=== PATIENT | male | born 1985 | race Caucasian/White ===

== ENCOUNTER → 2016-09-30 | Outpatient (CLI) | payer OTHER ==
--- NOTE | 2016-10-01 07:08 | XR ---
EXAMINATION TYPE: XR chest 2V DATE OF EXAM: 09/30/2016 COMPARISON: Chest x-ray April 06, 2011 HISTORY: Cough for one month TECHNIQUE: Frontal and lateral views of the chest are obtained. FINDINGS: There is no focal air space opacity, pleural effusion, or pneumothorax seen. The cardiac silhouette size is within normal limits. The osseous structures are intact. Cholecystectomy clips a re redemonstrated on lateral view. IMPRESSION: No suspicious focal infiltrate.
== END | disposition home or self-care (01) ==
LOC: RADXRMAIN 18:30
PROVIDERS: ATTEND Internal Medicine
DX: R05 Cough (principal); Z79.899 Other long term (current) drug therapy
CPT/HCPCS: 71020

== ENCOUNTER → 2019-04-08 | Outpatient (CLI) | payer BC ==
--- NOTE | 2019-04-08 13:32 | XR ---
EXAMINATION TYPE: XR chest 2V DATE OF EXAM: 04/08/2019 COMPARISON: 09/30/2016 HISTORY: Cough TECHNIQUE: Frontal and lateral views of the chest are obtained. FINDINGS: There is no focal air space opacity, pleural effusion, or pneumothorax seen. The cardiac silhouette size is within normal limits. The osseous structures are intact. Cholecystectomy clips a re present. IMPRESSION: No acute cardiopulmonary process.
== END | disposition home or self-care (01) ==
LOC: RADXRMAIN 11:35
PROVIDERS: ATTEND Internal Medicine
DX: R05 Cough (principal)
CPT/HCPCS: 71046

== ENCOUNTER → 2021-06-25 | Outpatient (CLI) | payer BC ==
--- NOTE | 2021-06-25 17:58 | US ---
EXAMINATION TYPE: US groin LT DATE OF EXAM: 06/25/2021 COMPARISON: NONE CLINICAL HISTORY: 35-year-old male R10.32 L groin pain. Technique: Targeted ultrasound examination along the site of patient's pain along the left inguinal r egion. Valsalva maneuver was utilized. FINDINGS: Crusher Feeder notes: Patient has generalized groin pain extending from his left testicle to his medial left hip. No abnormality seen in scanned area. No hernia or fluid collection noted at this time. IMPRESSION: No discrete sonographic abnormality along the left inguinal region along the site of patient's pain.
== END | disposition home or self-care (01) ==
LOC: RADUSWWP 13:31
PROVIDERS: ATTEND Internal Medicine
DX: R10.32 Left lower quadrant pain (principal)

== ENCOUNTER 2021-07-07 07:15 | Emergency (ER) | payer BC, OTHER ==
[2021-07-07 07:22] VITALS: RESP 18
--- NOTE | 2021-07-07 07:37 | ED ---
General Adult HPI - General Stated complaint: [facility] - Needle Stick Time Seen by Provider: 07/07/21 07:19 Source: patient, RN notes reviewed Mode of arrival: ambulatory Limitations: no limitations - History of Present Illness Initial comments: 35-year-old male presents emergency Department chief complaint of needlestick. Patient states that he poked himself with a yuval it. There is no history of communicable diseases of the patient. States it is small amount blood. He did immediately wash it. Patient states up-to-date on his tetanus. Patient offers no complaints. - Related Data Home Medications Medication Instructions Recorded Confirmed Valerian Root 525 mg PO HS PRN 09/15/14 09/15/14 Allergies Allergy/AdvReac Type Severity Reaction Status Date / Time No Known Allergies Allergy Verified 07/07/21 07:21 Review of Systems ROS Statement: Those systems with pertinent positive or pertinent negative responses have been documented in the HPI. ROS Other: All systems not noted in ROS Statement are negative. Past Medical History Past Medical History: Pneumonia Additional Past Medical History / Comment(s): kidney stones, cat scratch disease, transient proteinuria. History of Any Multi-Drug Resistant Organisms: None Reported Past Surgical History: Cholecystectomy Past Psychological History: No Psychological Hx Reported Smoking Status: Never smoker Past Alcohol Use History: Occasional Past Drug Use History: None Reported - Past Family History Mother Family Medical History: No Reported History (Mother at age of 45 after she was drowned and she suffered from schizophrenia) Additional Family Medical History / Comment(s): schizophrenia Father Family Medical History: No Reported History (Father is 57-year-old he has no major medical problems) Sister(s) Family Medical History: No Reported History (2 sisters no major medical problems) General Exam General appearance: alert, in no apparent distress Head exam: Present: atraumatic, normocephalic, normal inspection Respiratory exam: Present: normal lung sounds bilaterally. Absent: respiratory distress, wheezes, rales, rhonchi, stridor Cardiovascular Exam: Present: regular rate, normal rhythm, normal heart sounds. Absent: systolic murmur, diastolic murmur, rubs, gallop, clicks Extremities exam: Present: other (No notable puncture wound to the left index finger) Course Vital Signs 07/07/21 07:19 Temperature 97.6 F Pulse Rate 73 Respiratory 18 Rate Blood Pressure 146/82 O2 Sat by Pulse 96 Oximetry Medical Decision Making - Medical Decision Making Patient had exposure from [place] there is no history kidney will diseases. Patient was offered prophylaxis patient declines will have rapid testing performed, will have recheck with [facility] Disposition Clinical Impression: Needlestick injury accident Disposition: HOME SELF-CARE Condition: Stable Instructions (If sedation given, give patient instructions): Needle Stick Injuries (ED) Additional Instructions: Please return to the Emergency Department if symptoms worsen or any other concerns. Is patient prescribed a controlled substance at d/c from ED?: No Referrals: Guerline Landry MD [Primary Care Provider] - 1-2 days Time of Disposition: 07:36
[2021-07-07 08:31] VITALS: BP 117/76; PULSE 68; TEMP 98.2
[2021-07-07 11:15] LABS: Hepatitis B Surface AB- Quant 3.5 mIU/mL; Hepatitis B Surface Antibody Nonreactive (Nonreactive)
[2021-07-07 13:03] LABS: Hepatitis C IgG Antibody Nonreactive (Nonreactive)
[2021-07-08 16:40] LABS: HIV 2 AB Non-Reactive (Non-Reactive); HIV AB P24 Non-Reactive (Non-Reactive); HIV P24 AG Non-Reactive (Non-Reactive)
== END 2021-07-07 08:33 | disposition home or self-care (01) ==
LOC: EC 07:15
DX: Z77.21 Contact with and (suspected) exposure to potentially hazardous body fluids (principal); W46.1XXA Contact with contaminated hypodermic needle, initial encounter
CPT/HCPCS: 36415; 86706; 86803; 87390

== ENCOUNTER → 2022-03-03 | Outpatient (CLI) | payer OTHER ==
--- NOTE | 2022-03-03 10:57 | CA ---
Stress Echo Report aSm Charles Age: 36 Gender: M : 1985 Exam Date: 03/03/2022 09:54 Exam Location: [facility] Ht (in): 69 Wt (lb): 250 Ordering Physician: Destinee Tracy MD Referring Physician: DESTINEE TRACY,, Import/Export Administrator: Tasneem Be RDCS Technologist Procedure CPT: Indication: R07.9 CHEST PAIN ICD-9 Codes: Rhythm: Patient History: Chest Pain Cardiac Medications: Medications in past 24 hours: Contrast: Stress Results Protocol: Laci Total dose(mL): Exercise Duration (min:sec): 9:[address] Depression (mm): Angina Score: Sanderson Score: METS: 10.3 Resting HR: 87 Resting BP: 84 / 45 Peak HR: 180 Peak BP: 165 / 70 Max Predicted HR: 183 98 % Max Predicted HR Target HR: 156 Double Product: [id number] Stress Summary: BP Response: Reason for Termination: Reached target heart rate or work-load Cardiac Symptoms: Chest pain ECG Analysis Resting ECG: Normal sinus rhythm normal axis normal intervals Stress ECG: Negative stress test by EKG criteria Arrhythmia: No significant cardiac arrhythmia Echo Analysis Resting Echo: Normal left ventricular size wall motion systolic function Peak Echo Analysis: Normal hyperdynamic response of all segments of myocardium MEASUREMENTS (Male/Female) Normal Values CONCLUSIONS Good exercise tolerance Negative stress test by EKG criteria Negative stress echo Dr. Michi Stanley MD (Electronically Signed) Final Date: 03 March 2022 10:56
== END | disposition home or self-care (01) ==
LOC: RADNMMAIN 09:45
PROVIDERS: ATTEND Internal Medicine
DX: R07.9 Chest pain, unspecified (principal)
CPT/HCPCS: 93351

== ENCOUNTER 2023-09-20 00:19 | Emergency (ER) | payer BC, OTHER ==
--- NOTE | 2023-09-20 01:23 | ED ---
General Adult HPI - General Chief complaint: Chest Pain Stated complaint: left arm pain dizzy thirsty Time Seen by Provider: 09/20/23 01:16 Source: patient - History of Present Illness Initial comments: Dictation was produced using [employer] dictation software. please excuse any grammatical, word or spelling errors. Chief Complaint: 37-year-old male presents emergency department chest pain History of Present Illness: Patient is a 29-year-old male presents emergency department chest pain. Patient states that his pain has not been on and off for the last several days. Patient has no comorbidities. States that he decided come to the emergency department because he thought it was cardiac given that today he had some episodes of diaphoresis. No family history of cardiac disease. Patient states that his pain is not reproducible. Denies any shortness of breath. Denies any pleurisy. The ROS documented in this emergency department record has been reviewed and confirmed by me. Those systems with pertinent positive or negative responses have been documented in the HPI. All other systems are other negative and/or noncontributory. - Related Data Home Medications Medication Instructions Recorded Confirmed Valerian Root 525 mg PO HS PRN 09/15/14 09/15/14 Allergies Allergy/AdvReac Type Severity Reaction Status Date / Time No Known Allergies Allergy Verified 09/20/23 01:13 Review of Systems ROS Statement: Those systems with pertinent positive or pertinent negative responses have been documented in the HPI. ROS Other: All systems not noted in ROS Statement are negative. Past Medical History Past Medical History: Pneumonia Additional Past Medical History / Comment(s): kidney stones, cat scratch disease, transient proteinuria. History of Any Multi-Drug Resistant Organisms: None Reported Past Surgical History: Cholecystectomy Past Psychological History: No Psychological Hx Reported Smoking Status: Never smoker Past Alcohol Use History: Occasional Past Drug Use History: None Reported - Past Family History Mother Family Medical History: No Reported History (Mother at age of 45 after she was drowned and she suffered from schizophrenia) Additional Family Medical History / Comment(s): schizophrenia Father Family Medical History: No Reported History (Father is 57-year-old he has no major medical problems) Sister(s) Family Medical History: No Reported History (2 sisters no major medical problems) General Exam - General Exam Comments Initial Comments: PHYSICAL EXAM: General Impression: Alert and oriented x3, not in acute distress HEENT: Normocephalic atraumatic, extra-ocular movements intact, pupils equal and reactive to light bilaterally, mucous membranes moist. Cardiovascular: Heart regular rate and rhythm Chest: Able to complete full sentences, no retractions, no tachypnea Abdomen: abdomen soft, non-tender, non-distended, no organomegaly Musculoskeletal: Pulses present and equal in all extremities, no peripheral edema Motor: no focal deficits noted Neurological: CN II-XII grossly intact, no focal motor or sensory deficits noted Skin: Intact with no visualized rashes Psych: Normal affect and mood Course Vital Signs 09/20/23 09/20/23 09/20/23 01:08 01:33 02:13 Temperature 98.1 F Pulse Rate 95 82 Pulse Rate [ 89 Workforce Staffing Advisor ] Respiratory 14 20 Rate Blood Pressure 129/78 115/73 O2 Sat by Pulse 97 97 Oximetry 09/20/23 06:21 Temperature Pulse Rate 60 Pulse Rate [ Workforce Staffing Advisor ] Respiratory 18 Rate Blood Pressure 115/74 O2 Sat by Pulse 96 Oximetry EKG Findings - EKG Comments: EKG Findings:: My EKG interpretation: Ventricular rate 83, sinus rhythm,. 167, QRS 89, QTc 4 4. No LA prolongation, no QTC prolongation, no ST or T-wave changes noted. Overall, this EKG is unremarkable Medical Decision Making - Medical Decision Making Was pt. sent in by a medical professional or institution ([facility]ios, CRIMINAL INVESTIGATIVE AGENT, urgent care, hospital, or skilled nursing...) When possible be specific @ -No Did you speak to anyone other than the patient for history (EMS, parent, family, police, friend...)? What history was obtained from this source @ -No Did you review nursing and triage notes (agree or disagree)? Why? @ -I reviewed and agree with nursing and triage notes Were old charts reviewed (outside hosp., previous admission, EMS record, old EKG, old radiological studies, urgent care reports/EKG's, skilled nursing records)? Report findings @ -No old charts were reviewed Differential Diagnosis (chest pain, altered mental status, abdominal pain women, abdominal pain men, vaginal bleeding, musculoskeletal, weakness, fever, dyspnea, syncope, headache, dizziness, GI bleed, back pain, seizure, CVA, palpatations, mental health)? @ -Differential Chest Pain: Stable Angina, Unstable Angina, STEMI, NSTEMI Aortic Dissection, Pneumothorax, Musculoskeletal, Esophageal Spasm GERD, Cholecystitis, Pancreatitis, Zoster, this is not meant to be an all-inclusive list. EKG interpreted by me (3pts min.). @ -See above X-rays interpreted by me (1pt min.). @ -Two-view chest x-ray is unremarkable CT interpreted by me (1pt min.). @ -None done U/S interpreted by me (1pt. min.). @ -None done What testing was considered but not performed or refused? (CT, X-rays, U/S, labs)? Why? @ -None What meds were considered but not given or refused? Why? @ -None Did you discuss the management of the patient with other professionals (professionals i.e. , PA, CRIMINAL INVESTIGATIVE AGENT, lab, RT, psych nurse, hospital social worker, oxygen plant operator, teacher, disability insurance hearing officer, case finishing machine adjuster)? Give summary @ -No Was smoking cessation discussed for >3mins.? @ -No Was critical care preformed (if so, how long)? @ -No Were there social determinants of health that impacted care today? How? (Homelessness, low income, unemployed, alcoholism, drug addiction, transportation, low edu. Level, literacy, decrease access to med. care, snf, rehab)? @ -No Was there de-escalation of care discussed even if they declined (Discuss DNR or withdrawal of care, Hospice)? DNR status @ -No What co-morbidities impacted this encounter? (DM, HTN, Smoking, COPD, CAD, Cancer, CVA, ARF, Chemo, Hep., AIDS, mental health diagnosis, sleep apnea, morbid obesity)? @ -None Was patient admitted / discharged? Hospital course, mention meds given and route, prescriptions, significant lab abnormalities, going to OR and other pertinent info. @ -37-year-old male presents emergency department with atypical chest pain typical features. Vital signs upon arrival are within acceptable limits. Patient is low heart score risk. Laboratory evaluation obtained. CBC, coag panel, metabolic panel is unremarkable. Troponin is negative. Disposition options were discussed. Patient is agreeable for second troponin to determine final disposition. Patient given aspirin. Second troponin is negative. Patient reevaluated again at bedside 6:47 AM found to be stable medical addition. Patient pain-free. Patient discharged Undiagnosed new problem with uncertain prognosis? @ -No Drug Therapy requiring intensive monitoring for toxicity (Heparin, Nitro, Insulin, Cardizem)? @ -No Were any procedures done? @ -No Diagnosis/symptom? Acute, or Chronic, or Acute on Chronic? Uncomplicated (without systemic symptoms) or Complicated (systemic symptoms)? @ -Chest pain Side effects of treatment? @ -No Exacerbation, Progression, or Severe Exacerbation? @ -No Poses a threat to life or bodily function? How? (Chest pain, [place], GA, pneumonia, PE, COPD, DKA, ARF, appy, cholecystitis, CVA, Diverticulitis, Homicidal, Suicidal, threat to staff... and all critical care pts) @ -No - Lab Data Result diagrams: 09/20/23 01:09/20/23 01: Lab Results 09/20/23 09/20/23 09/20/23 Range/Units 01:28 01: 01:28 WBC 8.0 (3.8-10.6) k/uL RBC 5.28 (4.30-5.90) m/uL Hgb 15.5 (13.0-17.5) gm/dL Hct 46.3 (39.0-53.0) % MCV 87.8 (80.0-100.0) fL MCH 29.4 (25.0-35.0) pg MCHC 33.4 (31.0-37.0) g/dL RDW 13.7 (11.5-15.5) % Plt Count 275 (150-450) k/uL MPV 7.9 Neutrophils % 58 % Lymphocytes % 26 % Monocytes % 8 % Eosinophils % 4 % Basophils % 1 % Neutrophils # 4.6 (1.3-7.7) k/uL Lymphocytes # 2.1 (1.0-4.8) k/uL Monocytes # 0.7 (0-1.0) k/uL Eosinophils # 0.4 (0-0.7) k/uL Basophils # 0.1 (0-0.2) k/uL PT 10.3 (10.0-12.5) sec INR 0.9 (<1.2) APTT 27.3 (22.0-30.0) sec Sodium 142 (137-145) mmol/L Potassium 3.7 (3.5-5.1) mmol/L Chloride 109 H (98-107) mmol/L Carbon Dioxide 26 (22-30) mmol/L Anion Gap 7 mmol/L BUN 18 (9-20) mg/dL Creatinine 0.88 (0.66-1.25) mg/dL Est GFR (CKD-EPI)AfAm >90 (>60 ml/min/1.73 sqM) Est GFR (CKD-EPI)NonAf >90 (>60 ml/min/1.73 sqM) Glucose 117 H (74-99) mg/dL Calcium 8.7 (8.4-10.2) mg/dL Magnesium 2.0 (1.6-2.3) mg/dL Total Bilirubin 1.5 H (0.2-1.3) mg/dL AST 26 (17-59) U/L ALT 26 (4-49) U/L Alkaline Phosphatase 73 (38-126) U/L Troponin I (0.000-0.034) ng/mL Total Protein 6.8 (6.3-8.2) g/dL Albumin 3.9 (3.5-5.0) g/dL 09/20/23 09/20/23 Range/Units 01:28 05:06 WBC (3.8-10.6) k/uL RBC (4.30-5.90) m/uL Hgb (13.0-17.5) gm/dL Hct (39.0-53.0) % MCV (80.0-100.0) fL MCH (25.0-35.0) pg MCHC (31.0-37.0) g/dL RDW (11.5-15.5) % Plt Count (150-450) k/uL MPV Neutrophils % % Lymphocytes % % Monocytes % % Eosinophils % % Basophils % % Neutrophils # (1.3-7.7) k/uL Lymphocytes # (1.0-4.8) k/uL Monocytes # (0-1.0) k/uL Eosinophils # (0-0.7) k/uL Basophils # (0-0.2) k/uL PT (10.0-12.5) sec INR (<1.2) APTT (22.0-30.0) sec Sodium (137-145) mmol/L Potassium (3.5-5.1) mmol/L Chloride (98-107) mmol/L Carbon Dioxide (22-30) mmol/L Anion Gap mmol/L BUN (9-20) mg/dL Creatinine (0.66-1.25) mg/dL Est GFR (CKD-EPI)AfAm (>60 ml/min/1.73 sqM) Est GFR (CKD-EPI)NonAf (>60 ml/min/1.73 sqM) Glucose (74-99) mg/dL Calcium (8.4-10.2) mg/dL Magnesium (1.6-2.3) mg/dL Total Bilirubin (0.2-1.3) mg/dL AST (17-59) U/L ALT (4-49) U/L Alkaline Phosphatase (38-126) U/L Troponin I <0.012 <0.012 (0.000-0.034) ng/mL Total Protein (6.3-8.2) g/dL Albumin (3.5-5.0) g/dL Disposition Clinical Impression: Chest pain Disposition: HOME SELF-CARE Condition: Good Instructions (If sedation given, give patient instructions): Chest Pain (ED) Is patient prescribed a controlled substance at d/c from ED?: No Referrals: Guerline Landry MD [Primary Care Provider] - 1-2 days Time of Disposition: 06:47
[2023-09-20 01:43] LABS: Basophils # (A) 0.1 k/uL (0-0.2); Basophils % (A) 1 %; Eosinophils # (A) 0.4 k/uL (0-0.7); Eosinophils % (A) 4 %; HCT 46.3 % (39.0-53.0); HGB 15.5 gm/dL (13.0-17.5); Lymphocytes # (A) 2.1 k/uL (1.0-4.8); Lymphocytes % (A) 26 %; MCH 29.4 pg (25.0-35.0); MCHC 33.4 g/dL (31.0-37.0); MCV 87.8 fL (80.0-100.0); Mean Platelet Volume 7.9; Monocytes # (A) 0.7 k/uL (0-1.0); Monocytes % (A) 8 %; Neutrophils # (A) 4.6 k/uL (1.3-7.7); Neutrophils % (A) 58 %; Platelet Count 275 k/uL (150-450); RBC 5.28 m/uL (4.30-5.90); RDW 13.7 % (11.5-15.5)
[2023-09-20 01:46] LABS: ALT 26 U/L (4-49); AST 26 U/L (17-59); African American GFR (CKD) >90 (>60 ml/min/1.73 sqM); Albumin 3.9 g/dL (3.5-5.0); Alkaline Phosphatase 73 U/L (38-126); Anion Gap 7 mmol/L; Blood Urea Nitrogen 18 mg/dL (9-20); Calcium 8.7 mg/dL (8.4-10.2); Carbon Dioxide 26 mmol/L (22-30); Chloride 109 mmol/L (98-107); Glucose 117 mg/dL (74-99); Non-African American GFR(CKD) >90 (>60 ml/min/1.73 sqM); Potassium 3.7 mmol/L (3.5-5.1); Sodium 142 mmol/L (137-145); Total Bilirubin 1.5 mg/dL (0.2-1.3); Total Protein 6.8 g/dL (6.3-8.2)
[2023-09-20 02:31] LABS: INR 0.9 (<1.2); Partial Thromboplastin Time 27.3 sec (22.0-30.0); Prothrombin Time 10.3 sec (10.0-12.5)
--- NOTE | 2023-09-20 05:29 | XR ---
EXAMINATION TYPE: XR chest 2V DATE OF EXAM: 09/20/2023 COMPARISON: Chest x-ray April 08, 2019 HISTORY: Chest pain TECHNIQUE: Frontal and lateral views of the chest are obtained. FINDINGS: There is no focal air space opacity, pleural effusion, or pneumothorax seen. The cardiac silhouette size is stable and upper limits of normal. The osseous structures are intact. IMPRESSION: No acute process.
[2023-09-20] MEDS: ASPIRIN 81 MG PO STA (06:45)
[2023-09-20 07:27] VITALS: BP 110/73; PULSE 70; RESP 16; TEMP 97.8
== END 2023-09-20 06:53 | disposition home or self-care (01) ==
LOC: EC 00:19
DX: R07.89 Other chest pain (principal)
CPT/HCPCS: 36415; 71046; 80053; 83735; 84484; 85025; 85610; 85730; 93005; 99285

== ENCOUNTER → 2024-06-30 | Outpatient (CLI) | payer BC ==
--- NOTE | 2024-06-30 12:20 | CA ---
Exercise Nuclear Stress Test Report Name: Sam Charles Exam Date: 06/30/2024 09:17 Exam Location: [place] Stress Ht (in): 69 Wt (lb): 250 BSA: 2.27 Ordering Phys: Guerline Landry MD Referring Phys: Guerline Landry MD Technologist: ÁNGEL, Age: 38 Gender: M : 1985 Procedure CPT: Indications: R00.2 palpitations ICD-10 Codes: Patient History: Chest pain and palpitations Medications: Meds past 24 hrs: Pretest Chest Pain: STRESS TEST Lcai Protocol Exercise Duration (min:sec): 09:[address] Depressions (mm): Angina Score: Sanderson Score: Resting HR (bpm): 80 Peak HR (bpm): 163 Resting BP (mmHg): 118 / 70 Peak BP (mmHg): 145 / 71 MPHR: 181 Target HR: 154 % MPHR: 90 METS: 10.5 Total Dose: Peak Dose: Atropine: Double Product: 25957 BP Response: Stress Termination: MAX EXERTION/TARGET HR Stress Symptoms: NO SYMPTOMS Stress Summary: ECG ANALYSIS Resting ECG: Normal sinus rhythm Stress ECG: No significant ST or T wave changes CONCLUSIONS Good exercise tolerance, acheiving 10.5 METS. Non ischemic ECG response to exercise. Please refer to [facility] for the complete interpretation of the study Dr Parveen Freeman (Electronically Signed) Final Date: 30 June 2024 12:20
--- NOTE | 2024-06-30 15:23 | NM ---
EXAMINATION TYPE: NM stress cardiolite complete DATE OF EXAM: 06/30/2024 COMPARISON: NONE CLINICAL INDICATION: Male, 38 years old with history of R00.2 PALPITATIONS, TECHNIQUE: After the intravenous administration of 10.6 mCi Tc 99m Sestamibi - Cardiolite resting SP ECT images acquired 45 minutes post injection. At peak stress 25.8 mCi Tc 99m Sestamibi - Stress images obtained 15 minutes post injection The patient was stressed on a treadmill reaching greater than 85% predicted maximum heart rate. FINDINGS: No fixed defects are evident. No reversible stress defects on Spect images. Wall motion is normal. Ejection fraction is calculated to be 70 %. IMPRESSION: 1. No stress-induced ischemic changes. [facility], , 06/30/2024 3:21 PM
== END | disposition home or self-care (01) ==
LOC: RADNMMAIN 07:32
PROVIDERS: ATTEND Internal Medicine
DX: R00.2 Palpitations (principal); R07.9 Chest pain, unspecified
CPT/HCPCS: 93017; 78452; A9500

== ENCOUNTER → 2024-07-05 | Outpatient (CLI) | payer BC ==
--- NOTE | 2024-07-05 18:34 | CA ---
Transthoracic Echo Report Name: Sam Charles Age: 38 Gender: M : 1985 Exam Date: 07/05/2024 15:00 Exam Location: [place] Echo Ht (in): 69 Wt (lb): 245 Ordering Physician: Guerilne Landry MD Attending/Referring Phys: Probation And Parole Officer Nany Barber RDCS Procedure CPT: Indications: R00.2 palpitations Cardiac Hx: Technical Quality: Fair Contrast 1: Total Dose (mL): Contrast 2: Total Dose (mL): MEASUREMENTS (Male / Female) Normal Values 2D ECHO LV Diastolic Diameter PLAX 3.9 cm 4.2 - 5.9 / 3.9 - 5.3 cm LV Systolic Diameter PLAX 2.6 cm IVS Diastolic Thickness 1.3 cm 0.6 - 1.0 / 0.6 - 0.9 cm LVPW Diastolic Thickness 0.8 cm 0.6 - 1.0 / 0.6 - 0.9 cm LV Relative Wall Thickness 0.5 LVOT Diameter 2.6 cm LV Diastolic Volume MOD BP 107.8 cm??? 67 - 155 / 56 - 104 cm??? LV Systolic Volume MOD BP 59.1 cm??? 22 - 58 / 19 - 49 cm??? LV Ejection Fraction MOD BP 45.2 % >= 55 % LV Cardiac Index MOD BP 1992.8 cm???/min???m??? LV Diastolic Volume MOD 4C 121.7 cm??? LV Systolic Volume MOD 4C 67.5 cm??? LV Ejection Fraction MOD 4C 44.6 % LV Cardiac Index MOD 4C 2222.0 cm???/min???m??? LV Diastolic Length 4C 9.1 cm LV Systolic Length 4C 7.8 cm LV Diastolic Volume MOD 2C 89.6 cm??? LV Systolic Volume MOD 2C 51.2 cm??? LV Ejection Fraction MOD 2C 42.8 % LV Cardiac Index MOD 2C 1571.9 cm???/min???m??? LV Diastolic Length 2C 8.4 cm LV Systolic Length 2C 7.7 cm LA Volume 35.6 cm??? 18 - 58 / 22 - 52 cm??? LA Volume Index 15.0 cm???/m??? 16 - 28 cm???/m??? Ascending Aorta Diameter 3.3 cm DOPPLER AV Peak Velocity 114.8 cm/s AV Peak Gradient 5.3 mmHg AV Mean Velocity 89.1 cm/s AV Mean Gradient 3.3 mmHg AV Velocity Time Integral 17.5 cm LVOT Peak Velocity 106.1 cm/s LVOT Peak Gradient 4.5 mmHg LVOT Velocity Time Integral 16.9 cm LVOT Stroke Volume 88.4 cm??? LVOT Stroke Volume Index 39.3 ml/m??? LVOT Cardiac Index 3619.3 cm???/min???m??? AV Area Cont Eq vti 5.1 cm??? AV Area Cont Eq pk 4.8 cm??? MV Peak Velocity 73.5 cm/s MV Peak Gradient 2.2 mmHg MV Mean Velocity 50.4 cm/s MV Mean Gradient 1.1 mmHg MV Velocity Time Integral 14.2 cm MV Area PHT 4.1 cm??? Mitral E Point Velocity 41.1 cm/s Mitral A Point Velocity 48.7 cm/s Mitral E to A Ratio 0.8 MV Deceleration Time 185.1 ms PV Peak Velocity 124.1 cm/s PV Peak Gradient 6.2 mmHg FINDINGS Left Ventricle Left ventricular ejection fraction is estimated at 50-55 %. Mildly increased septal wall thickness. Normal left ventricular systolic function with no obvious regional wall motion abnormalities. Left ventricular systolic function borderline normal Right Ventricle Normal right ventricular size and function. Unable to estimate the right ventricular systolic pressure. Right Atrium Normal right atrial size. Left Atrium Normal left atrial size. Mitral Valve Structurally normal mitral valve. No evidence for mitral valve prolapse. No mitral stenosis. No mitral regurgitation. Aortic Valve Trileaflet aortic valve. No aortic valve stenosis or regurgitation. Tricuspid Valve Structurally normal tricuspid valve. No tricuspid stenosis. Trace tricuspid regurgitation. Pulmonic Valve Structurally normal pulmonic valve. No pulmonic stenosis. Trace pulmonic regurgitation. Pericardium No pericardial effusion. Aorta Normal size aortic root and proximal ascending aorta. CONCLUSIONS 1. Left ventricular systolic function borderline normal 2. Trace tricuspid regurgitation Previewed by: Dr. Alton Dumont MD (Electronically Signed) Final Date: 05 July 2024 18:34
== END | disposition home or self-care (01) ==
LOC: RADECHMAIN 14:43
PROVIDERS: ATTEND Internal Medicine
DX: I36.1 Nonrheumatic tricuspid (valve) insufficiency (principal); R00.2 Palpitations
CPT/HCPCS: 93306

== ENCOUNTER 2024-07-27 21:30 | Emergency (ER) | payer BC ==
[2024-07-27 21:56] VITALS: TEMP 98.3
--- NOTE | 2024-07-27 23:05 | XR ---
EXAMINATION TYPE: XR chest 2V DATE OF EXAM: 07/27/2024 CLINICAL INDICATION: Male, 38 years old with history of altered mental status, TECHNIQUE: Frontal and lateral views of the chest are obtained. COMPARISON: Chest x-ray September 20, 2023 FINDINGS: There is no focal air space opacity, pleural effusion, or pneumothorax seen. The cardiac silhouette size is stable and mildly enlarged. The osseous structures are intact. IMPRESSION: Mild cardiomegaly without acute pulmonary process. [facility], , 07/27/2024 11:02 PM
[2024-07-27] MEDS: SODIUM CHLORIDE 0.9% 1,000 ML IV ONE (23:07)
[2024-07-27 23:11] LABS: Appearance,Urine Clear (Clear); Bilirubin,Urine Negative (Negative); Blood,Urine Negative (Negative); Color,Urine Yellow; Glucose,Urine (UA) Negative (Negative); Ketones,Urine Negative (Negative); Leukocyte Esterase,Urine Negative (Negative); Nitrite,Urine Negative (Negative); Protein,Urine Trace (Negative)
[2024-07-27 23:12] LABS: Basophils % (A) 0 %; Eosinophils # (A) 0.2 k/uL (0-0.7); Eosinophils % (A) 2 %; HCT 48.9 % (39.0-53.0); HGB 16.7 gm/dL (13.0-17.5); Lymphocytes # (A) 2.3 k/uL (1.0-4.8); Lymphocytes % (A) 25 %; MCH 29.8 pg (25.0-35.0); MCHC 34.2 g/dL (31.0-37.0); MCV 87.2 fL (80.0-100.0); Mean Platelet Volume 8.2; Monocytes # (A) 0.6 k/uL (0-1.0); Monocytes % (A) 6 %; Neutrophils % (A) 65 %; Platelet Count 320 k/uL (150-450); RDW 13.4 % (11.5-15.5); WBC 9.2 k/uL (3.8-10.6)
[2024-07-27 23:13] LABS: Glucose,Whole Blood 93 mg/dL (70-110)
[2024-07-27 23:20] LABS: ALT 31 U/L (4-49); AST 23 U/L (17-59); African American GFR (CKD) >90 (>60 ml/min/1.73 sqM); Albumin 4.1 g/dL (3.5-5.0); Alcohol <10 mg/dL; Alkaline Phosphatase 65 U/L (38-126); Anion Gap 7 mmol/L; Blood Urea Nitrogen 11 mg/dL (9-20); Calcium 9.2 mg/dL (8.4-10.2); Carbon Dioxide 29 mmol/L (22-30); Chloride 103 mmol/L (98-107); Glucose 106 mg/dL (74-99); Non-African American GFR(CKD) >90 (>60 ml/min/1.73 sqM); Potassium 3.9 mmol/L (3.5-5.1); Sodium 139 mmol/L (137-145); Total Bilirubin 2.3 mg/dL (0.2-1.3); Total Protein 6.9 g/dL (6.3-8.2)
[2024-07-27 23:23] LABS: Amphetamine Screen,Urine Not Detected (NotDetected); Barbiturate Screen,Urine Not Detected (NotDetected); Benzodiazepines Screen,Urine Not Detected (NotDetected); Cocaine Screen,Urine Not Detected (NotDetected); Methadone Screen, Urine Not Detected (NotDetected); Opiate Screen,Urine Not Detected (NotDetected); Oxycodone Screen, Urine Not Detected (NotDetected); Phencyclidine Screen,Urine Not Detected (NotDetected); Tricyclic Antidepressant,Urine Not Detected (NotDetected); Urn Cannabinoid Scrn Not Detected (NotDetected)
[2024-07-28 00:17] VITALS: BP 118/79; PULSE 79; RESP 16
[2024-07-28] MEDS: LORazepam 2 MG/ML INJ IV STA (00:43)
--- NOTE | 2024-07-28 01:11 | ED ---
General Adult HPI - General Chief complaint: Anxiety Stated complaint: Light headed Time Seen by Provider: 07/27/24 22:16 Source: patient Mode of arrival: ambulatory Limitations: no limitations - History of Present Illness Initial comments: 29-year-old male presenting with multiple complaints. Patient reports lightheadedness and some left-sided rib pain. No injury or trauma. No difficulty breathing. States that at times he feels very hot. Thinks that it may be due to anxiety due to some stressful life events recently. No nausea or vomiting. No abdominal pain. No fever. No URI-like symptoms. - Related Data Home Medications Medication Instructions Recorded Confirmed Valerian Root 525 mg PO HS PRN 09/15/14 09/15/14 Previous Rx's Medication Instructions Recorded hydrOXYzine HCL [Atarax] 50 mg PO TID PRN #10 tablet 07/28/24 Allergies Allergy/AdvReac Type Severity Reaction Status Date / Time No Known Allergies Allergy Verified 07/27/24 21:56 Review of Systems ROS Statement: Those systems with pertinent positive or pertinent negative responses have been documented in the HPI. ROS Other: All systems not noted in ROS Statement are negative. Past Medical History Past Medical History: Pneumonia Additional Past Medical History / Comment(s): kidney stones, cat scratch disease, transient proteinuria. History of Any Multi-Drug Resistant Organisms: None Reported Past Surgical History: Cholecystectomy Past Psychological History: No Psychological Hx Reported Smoking Status: Never smoker Past Alcohol Use History: Occasional Past Drug Use History: None Reported - Past Family History Mother Family Medical History: No Reported History (Mother at age of 45 after she was drowned and she suffered from schizophrenia) Additional Family Medical History / Comment(s): schizophrenia Father Family Medical History: No Reported History (Father is 57-year-old he has no major medical problems) Sister(s) Family Medical History: No Reported History (2 sisters no major medical problems) General Exam Limitations: no limitations General appearance: alert, in no apparent distress Head exam: Present: atraumatic, normocephalic, normal inspection Eye exam: Present: normal appearance, EOMI Neck exam: Present: normal inspection. Absent: meningismus Respiratory exam: Present: normal lung sounds bilaterally. Absent: respiratory distress, wheezes, rales, rhonchi, stridor Cardiovascular Exam: Present: regular rate, normal rhythm, normal heart sounds. Absent: systolic murmur, diastolic murmur, rubs, gallop, clicks GI/Abdominal exam: Present: soft. Absent: distended, tenderness, guarding, re bound, rigid Neurological exam: Present: alert, oriented X3 Psychiatric exam: Present: normal affect, normal mood Skin exam: Present: warm, dry, normal color Course Vital Signs 07/27/24 07/28/24 21:53 00:16 Temperature 98.3 F Pulse Rate 98 79 Respiratory 20 16 Rate Blood Pressure 131/86 118/79 O2 Sat by Pulse 98 98 Oximetry Medical Decision Making - Medical Decision Making Was pt. sent in by a medical professional or institution (, PA, SPANNER OPERATOR, urgent care, hospital, or intermediate...) When possible be specific @ -No Did you speak to anyone other than the patient for history (EMS, parent, family, police, friend...)? What history was obtained from this source @ -No Did you review nursing and triage notes (agree or disagree)? Why? @ -I reviewed and agree with nursing and triage notes Were old charts reviewed (outside hosp., previous admission, EMS record, old EKG, old radiological studies, urgent care reports/EKG's, intermediate records)? Report findings @ -No old charts were reviewed Differential Diagnosis (chest pain, altered mental status, abdominal pain women, abdominal pain men, vaginal bleeding, weakness, fever, dyspnea, syncope, headache, dizziness, GI bleed, back pain, seizure, CVA, palpatations, mental health, musculoskeletal)? @ -MDM Differential Dizziness: Benign paroxysmal positional Vertigo, Menieres disease, otitis media, acoustic neuroma, vertebrobasilar insufficiency, cerebellar stroke, encephalitis, hypovolemic, arrhythmia, coronary artery syndrome, anemia this is not meant to be an all-inclusive list EKG interpreted by me (3pts min.). @ -EKG shows sinus rhythm ventricular rate 82. ID interval 151. QRS 84. QT 344. QTc 382. X-rays interpreted by me (1pt min.). @ -Chest x-ray shows mild cardiomegaly with no acute process CT interpreted by me (1pt min.). @ -None done U/S interpreted by me (1pt. min.). @ -None done What testing was considered but not performed or refused? (CT, X-rays, U/S, labs)? Why? @ -None What meds were considered but not given or refused? Why? @ -None Did you discuss the management of the patient with other professionals (professionals i.e. , PA, SPANNER OPERATOR, lab, RT, psych nurse, licensed clinical social worker, installer technician, teacher, code enforcement officer, showcase maker)? Give summary @ -No Was smoking cessation discussed for >3mins.? @ -No Was critical care preformed (if so, how long)? @ -No Were there social determinants of health that impacted care today? How? (Homelessness, low income, unemployed, alcoholism, drug addiction, transportation, low edu. Level, literacy, decrease access to med. care, residential, rehab)? @ -No Was there de-escalation of care discussed even if they declined (Discuss DNR or withdrawal of care, Hospice)? DNR status @ -No What co-morbidities impacted this encounter? (DM, HTN, Smoking, COPD, CAD, Cancer, CVA, ARF, Chemo, Hep., AIDS, mental health diagnosis, sleep apnea, morbid obesity)? @ -None Was patient admitted / discharged? Hospital course, mention meds given and route, prescriptions, significant lab abnormalities, going to OR and other pertinent info. @ -38-year-old male presenting with chief complaint of lightheadedness. Thinks it may be due to anxiety. History and physical examination are conducted. Lab work requires no action. Negative urine toxicology and serum alcohol. No leukocytosis or anemia. Vital signs are stable. Chest x-ray shows no acute process. Patient is educated on today's findings. He was treated with Ativan and reports some improvement. He is provided with hydroxyzine for home. Follow-up with PCP. Report back to ER with any new or worsening symptoms. Discussed return parameters and answered all questions. Patient conveyed verbal understanding and agreed to the plan. I discussed this case in detail with my attending Dr. Parnell Undiagnosed new problem with uncertain prognosis? @ -No Drug Therapy requiring intensive monitoring for toxicity (Heparin, Nitro, Insulin, Cardizem)? @ -No Were any procedures done? @ -No Diagnosis/symptom? @ -Anxiety Acute, or Chronic, or Acute on Chronic? @ -Acute Uncomplicated (without systemic symptoms) or Complicated (systemic symptoms)? @ -complicated Side effects of treatment? @ -No Exacerbation, Progression, or Severe Exacerbation? @ -No Poses a threat to life or bodily function? How? (Chest pain, [place], [place], pneumonia, PE, COPD, DKA, ARF, appy, cholecystitis, CVA, Diverticulitis, Homicidal, Suicidal, threat to staff... and all critical care pts) @ -Likely - Lab Data Result diagrams: 07/27/24 22:06 07/27/24 22:06 Lab Results 07/27/24 07/27/24 07/27/24 Range/Units 22:06 22:06 22:06 WBC 9.2 (3.8-10.6) k/uL RBC 5.60 (4.30-5.90) m/uL Hgb 16.7 (13.0-17.5) gm/dL Hct 48.9 (39.0-53.0) % MCV 87.2 (80.0-100.0) fL MCH 29.8 (25.0-35.0) pg MCHC 34.2 (31.0-37.0) g/dL RDW 13.4 (11.5-15.5) % Plt Count 320 (150-450) k/uL MPV 8.2 Neutrophils % 65 % Lymphocytes % 25 % Monocytes % 6 % Eosinophils % 2 % Basophils % 0 % Neutrophils # 6.0 (1.3-7.7) k/uL Lymphocytes # 2.3 (1.0-4.8) k/uL Monocytes # 0.6 (0-1.0) k/uL Eosinophils # 0.2 (0-0.7) k/uL Basophils # 0.0 (0-0.2) k/uL Sodium 139 (137-145) mmol/L Potassium 3.9 (3.5-5.1) mmol/L Chloride 103 (98-107) mmol/L Carbon Dioxide 29 (22-30) mmol/L Anion Gap 7 mmol/L BUN 11 (9-20) mg/dL Creatinine 0.87 (0.66-1.25) mg/dL Est GFR (CKD-EPI)AfAm >90 (>60 ml/min/1.73 sqM) Est GFR (CKD-EPI)NonAf >90 (>60 ml/min/1.73 sqM) Glucose 106 H (74-99) mg/dL POC Glucose (mg/dL) (70-110) mg/dL POC Glu Mortgage Protection Specialist ID Calcium 9.2 (8.4-10.2) mg/dL Total Bilirubin 2.3 H (0.2-1.3) mg/dL AST 23 (17-59) U/L ALT 31 (4-49) U/L Alkaline Phosphatase 65 (38-126) U/L Troponin I <0.012 (0.000-0.034) ng/mL Total Protein 6.9 (6.3-8.2) g/dL Albumin 4.1 (3.5-5.0) g/dL Urine Color Urine Appearance (Clear) Urine pH (5.0-8.0) Ur Specific [place] (1.001-1.035) Urine Protein (Negative) Urine Glucose (UA) (Negative) Urine Ketones (Negative) Urine Blood (Negative) Urine Nitrite (Negative) Urine Bilirubin (Negative) Urine Urobilinogen (<2.0) mg/dL Ur Leukocyte Esterase (Negative) Urine Opiates Screen (NotDetected) Ur Oxycodone Screen (NotDetected) Urine Methadone Screen (NotDetected) Ur Barbiturates Screen (NotDetected) U Tricyclic Antidepress (NotDetected) Ur Phencyclidine Scrn (NotDetected) Ur Amphetamines Screen (NotDetected) U Methamphetamines Scrn (NotDetected) U Benzodiazepines Scrn (NotDetected) Urine Cocaine Screen (NotDetected) U Marijuana (THC) Screen (NotDetected) Serum Alcohol <10 mg/dL 07/27/24 07/27/24 07/27/24 Range/Units 22:54 22:54 23:12 WBC (3.8-10.6) k/uL RBC (4.30-5.90) m/uL Hgb (13.0-17.5) gm/dL Hct (39.0-53.0) % MCV (80.0-100.0) fL MCH (25.0-35.0) pg MCHC (31.0-37.0) g/dL RDW (11.5-15.5) % Plt Count (150-450) k/uL MPV Neutrophils % % Lymphocytes % % Monocytes % % Eosinophils % % Basophils % % Neutrophils # (1.3-7.7) k/uL Lymphocytes # (1.0-4.8) k/uL Monocytes # (0-1.0) k/uL Eosinophils # (0-0.7) k/uL Basophils # (0-0.2) k/uL Sodium (137-145) mmol/L Potassium (3.5-5.1) mmol/L Chloride (98-107) mmol/L Carbon Dioxide (22-30) mmol/L Anion Gap mmol/L BUN (9-20) mg/dL Creatinine (0.66-1.25) mg/dL Est GFR (CKD-EPI)AfAm (>60 ml/min/1.73 sqM) Est GFR (CKD-EPI)NonAf (>60 ml/min/1.73 sqM) Glucose (74-99) mg/dL POC Glucose (mg/dL) 93 (70-110) mg/dL POC Glu Mortgage Protection Specialist ID Jeffrey Corona Calcium (8.4-10.2) mg/dL Total Bilirubin (0.2-1.3) mg/dL AST (17-59) U/L ALT (4-49) U/L Alkaline Phosphatase (38-126) U/L Troponin I (0.000-0.034) ng/mL Total Protein (6.3-8.2) g/dL Albumin (3.5-5.0) g/dL Urine Color Yellow Urine Appearance Clear (Clear) Urine pH 6.0 (5.0-8.0) Ur Specific [place] 1.030 (1.001-1.035) Urine Protein Trace H (Negative) Urine Glucose (UA) Negative (Negative) Urine Ketones Negative (Negative) Urine Blood Negative (Negative) Urine Nitrite Negative (Negative) Urine Bilirubin Negative (Negative) Urine Urobilinogen 2.0 (<2.0) mg/dL Ur Leukocyte Esterase Negative (Negative) Urine Opiates Screen Not Detected (NotDetected) Ur Oxycodone Screen Not Detected (NotDetected) Urine Methadone Screen Not Detected (NotDetected) Ur Barbiturates Screen Not Detected (NotDetected) U Tricyclic Antidepress Not Detected (NotDetected) Ur Phencyclidine Scrn Not Detected (NotDetected) Ur Amphetamines Screen Not Detected (NotDetected) U Methamphetamines Scrn Not Detected (NotDetected) U Benzodiazepines Scrn Not Detected (NotDetected) Urine Cocaine Screen Not Detected (NotDetected) U Marijuana (THC) Screen Not Detected (NotDetected) Serum Alcohol mg/dL Disposition Clinical Impression: Acute anxiety Disposition: HOME SELF-CARE Condition: Good Instructions (If sedation given, give patient instructions): Generalized Anxiety Disorder (ED) Additional Instructions: Follow-up with PCP. Report back to ER with any new or worsening symptoms. Do not take hydroxyzine before driving or operating heavy machinery as it may cause drowsiness Prescriptions: hydrOXYzine HCL [Atarax] 50 mg PO TID PRN #10 tablet PRN Reason: Anxiety Is patient prescribed a controlled substance at d/c from ED?: No Referrals: Guerline Landry MD [Primary Care Provider] - 1-2 days Time of Disposition: 01:11
== END 2024-07-28 01:17 | disposition home or self-care (01) ==
LOC: EC 21:30
DX: F41.9 Anxiety disorder, unspecified (principal); I51.7 Cardiomegaly
CPT/HCPCS: 36415; 71046; 80053; 80306; 80320; 81003; 84484; 85025; 93005; 96361; 96374; 99284

== ENCOUNTER 2024-08-05 12:55 | Inpatient (IN) | payer BC ==
--- NOTE | 2024-08-05 13:56 | ED ---
General Adult HPI - General Chief complaint: Anxiety Stated complaint: Anxiety Time Seen by Provider: 08/05/24 13:15 Source: patient, family, RN notes reviewed, old records reviewed Mode of arrival: ambulatory - History of Present Illness Initial comments: 38-year-old male who presents to the emergency department after having gone to see Dr. Landry today. Patient was recently started on BuSpar and Zoloft. Patient states it makes him feel high. Patient states continues to be extremely stressed because of money problems and he also states he is very anxious and has had multiple anxiety attacks. Patient denies hearing any voices. Patient [place] seeing anything. Patient has denies suicidal homicidal ideations. Patient denies any physical complaints today. Patient states he has not been able to sleep much lately but he states has been an ongoing problem for many years - Related Data Home Medications Medication Instructions Recorded Confirmed Cyclobenzaprine [Flexeril] 5 mg PO HS PRN 08/05/24 08/05/24 Sertraline [Zoloft] 50 mg PO DAILY 08/05/24 08/05/24 busPIRone HCl [Buspar] 5 mg PO BID 08/05/24 08/05/24 Previous Rx's Medication Instructions Recorded hydrOXYzine HCL [Atarax] 50 mg PO TID PRN #10 tablet 07/28/24 Allergies Allergy/AdvReac Type Severity Reaction Status Date / Time No Known Allergies Allergy Verified 08/05/24 14:10 Review of Systems ROS Statement: Those systems with pertinent positive or pertinent negative responses have been documented in the HPI. ROS Other: All systems not noted in ROS Statement are negative. Past Medical History Past Medical History: Pneumonia Additional Past Medical History / Comment(s): kidney stones, cat scratch disease, transient proteinuria. History of Any Multi-Drug Resistant Organisms: None Reported Past Surgical History: Cholecystectomy Past Psychological History: No Psychological Hx Reported Smoking Status: Never smoker Past Alcohol Use History: Occasional Past Drug Use History: None Reported - Past Family History Mother Family Medical History: No Reported History (Mother at age of 45 after she was drowned and she suffered from schizophrenia) Additional Family Medical History / Comment(s): schizophrenia Father Family Medical History: No Reported History (Father is 57-year-old he has no major medical problems) Sister(s) Family Medical History: No Reported History (2 sisters no major medical problems) General Exam - General Exam Comments Initial Comments: GENERAL: Patient is well-developed and well-nourished. Patient is nontoxic and well- hydrated and is in no acute distress. ENT: Neck is soft and supple. No significant lymphadenopathy is noted. Oropharynx is clear. Moist mucous membranes. Neck has full range of motion without eliciting any pain. EYES: The sclera were anicteric and conjunctiva were pink and moist. Extraocular movements were intact and pupils were equal round and reactive to light. Eyelids were unremarkable. PULMONARY: Unlabored respirations. Good breath sounds bilaterally. No audible rales rhonchi or wheezing was noted. CARDIOVASCULAR: There is a regular rate and rhythm without any murmurs gallops or rubs. ABDOMEN: Soft and nontender with normal bowel sounds. SKIN: Skin is clear with no lesions or rashes and otherwise unremarkable. NEUROLOGIC: Patient is alert and oriented x3. Cranial nerves II through XII are grossly intact. Motor and sensory are also intact. Normal speech, volume and content. Symmetrical smile. MUSCULOSKELETAL: Normal extremities with adequate strength and full range of motion. PSYCHIATRIC: Patient is extremely stressed and has a lot of anxiety. Course Vital Signs 08/05/24 13:10 Temperature 98.6 F Pulse Rate 87 Respiratory 18 Rate Blood Pressure 120/74 O2 Sat by Pulse 98 Oximetry Medical Decision Making - Medical Decision Making Was pt. sent in by a medical professional or institution (JAMES Palacios, TRAVELERS' AID WORKER, urgent care, hospital, or fci...) When possible be specific @ -No Did you speak to anyone other than the patient for history (EMS, parent, family, police, friend...)? What history was obtained from this source @ -No Did you review nursing and triage notes (agree or disagree)? Why? @ -I reviewed and agree with nursing and triage notes Were old charts reviewed (outside hosp., previous admission, EMS record, old EKG, old radiological studies, urgent care reports/EKG's, fci records)? Report findings @ -No old charts were reviewed Differential Diagnosis? @ -Differential Mental Health Depression, anxiety, bipolar, psychosis, schizophrenia, borderline personality, situational depression, adjustment disorder, behavioral disorder, brain tumor, malingering, substance abuse, encephalopathy, medication reaction, dementia, hypothyroidism, degenerative neurologic disorder, lupus.... This is not meant to be all-inclusive list EKG interpreted by me (3pts min.). @ -As above X-rays interpreted by me (1pt min.). @ -None done CT interpreted by me (1pt min.). @ -None done U/S interpreted by me (1pt. min.). @ -None done What testing was considered but not performed or refused? (CT, X-rays, U/S, labs)? Why? @ -None What meds were considered but not given or refused? Why? @ -None Did you discuss the management of the patient with other professionals (danyelle salgado i.e. , PA, TRAVELERS' AID WORKER, lab, RT, psych nurse, manager social responsibility, genetic counselor, teacher, correctional officer captain, bilingual patient support caseworker)? Give summary @ -I spoke with [facility] agreed the patient needed to be admitted they did a petition on the patient and I filled out a clinical Was smoking cessation discussed for >3mins.? @ -No Was critical care preformed (if so, how long)? @ -No Were there social determinants of health that impacted care today? How? (Homelessness, low income, unemployed, alcoholism, drug addiction, transportation, low edu. Level, literacy, decrease access to med. care, prison, rehab)? @ -No Was there de-escalation of care discussed even if they declined (Discuss DNR or withdrawal of care, Hospice)? DNR status @ -No What co-morbidities impacted this encounter? (DM, HTN, Smoking, COPD, CAD, Cancer, CVA, ARF, Chemo, Hep., AIDS, mental health diagnosis, sleep apnea, morbid obesity)? @ -None Was patient admitted / discharged? Hospital course, mention meds given and route, prescriptions, significant lab abnormalities, going to OR and other pertinent info. @ -Patient would not sign a safety plan so patient will be admitted to the psychiatric pardo and the patient was petitioned and certified Undiagnosed new problem with uncertain prognosis? @ -No Drug Therapy requiring intensive monitoring for toxicity (Heparin, Nitro, Insulin, Cardizem)? @ -No Were any procedures done? @ -No Diagnosis/symptom? @ -Depression Acute, or Chronic, or Acute on Chronic? @ -Acute Uncomplicated (without systemic symptoms) or Complicated (systemic symptoms)? @ -Complicated Side effects of treatment? @ -No Exacerbation, Progression, or Severe Exacerbation? @ -No Poses a threat to life or bodily function? How? (Chest pain, [place], [place], pneumonia, PE, COPD, DKA, ARF, appy, cholecystitis, CVA, Diverticulitis, Homicidal, Suicidal, threat to staff... and all critical care pts) @ -No Diagnosis/symptom? @ -Suicidal ideation Acute, or Chronic, or Acute on Chronic? @ -Acute Uncomplicated (without systemic symptoms) or Complicated (systemic symptoms)? @ -Comp Side effects of treatment? @ -None Exacerbation, Progression, or Severe Exacerbation] @ -No Poses a threat to life or bodily function? @ -Yes this can lead to an attempt and . - Lab Data Lab Results 08/05/24 08/05/24 Range/Units 14:05 17:10 Urine Opiates Screen Not Detected (NotDetected) Ur Oxycodone Screen Not Detected (NotDetected) Urine Methadone Screen Not Detected (NotDetected) Ur Barbiturates Screen Not Detected (NotDetected) U Tricyclic Antidepress Not Detected (NotDetected) Ur Phencyclidine Scrn Not Detected (NotDetected) Ur Amphetamines Screen Not Detected (NotDetected) U Methamphetamines Scrn Not Detected (NotDetected) U Benzodiazepines Scrn Not Detected (NotDetected) Urine Cocaine Screen Not Detected (NotDetected) U Marijuana (THC) Screen Not Detected (NotDetected) SARS-CoV-2 (PCR) Not Detected (Not Detectd) Disposition Clinical Impression: Depression, Suicidal ideation Disposition: ADMITTED IP TO THIS [facility] Instructions (If sedation given, give patient instructions): Generalized Anxiety Disorder (ED) Referrals: Guerline Landry MD [Primary Care Provider] - 1-2 days Time of Disposition: 18:06
[2024-08-05 14:27] LABS: Amphetamine Screen,Urine Not Detected (NotDetected); Barbiturate Screen,Urine Not Detected (NotDetected); Benzodiazepines Screen,Urine Not Detected (NotDetected); Cocaine Screen,Urine Not Detected (NotDetected); Methadone Screen, Urine Not Detected (NotDetected); Opiate Screen,Urine Not Detected (NotDetected); Oxycodone Screen, Urine Not Detected (NotDetected); Phencyclidine Screen,Urine Not Detected (NotDetected); Tricyclic Antidepressant,Urine Not Detected (NotDetected); Urn Cannabinoid Scrn Not Detected (NotDetected)
[2024-08-05] MEDS ORDERED: MAGNESIUM HYDROXIDE 2,400 MG/30 ML CUP PO PRN (19:26)
[2024-08-05] MEDS ORDERED: traZODone HCL 50 MG TAB PO PRN (19:26)
[2024-08-05] MEDS: PANTOPRAZOLE 40 MG TABLET PO SCH (22:11)
[2024-08-05] MEDS: MAG HYDROX/AL HYDROX/SIMETH 355 ML BOTTLE PO PRN (22:24)
[2024-08-06 08:04] LABS: Basophils % (A) 0 %; Eosinophils # (A) 0.1 k/uL (0-0.7); Eosinophils % (A) 1 %; HCT 49.7 % (39.0-53.0); HGB 17.3 gm/dL (13.0-17.5); Lymphocytes # (A) 1.9 k/uL (1.0-4.8); Lymphocytes % (A) 16 %; MCH 30.3 pg (25.0-35.0); MCHC 34.7 g/dL (31.0-37.0); MCV 87.4 fL (80.0-100.0); Mean Platelet Volume 7.8; Monocytes # (A) 0.8 k/uL (0-1.0); Monocytes % (A) 6 %; Neutrophils # (A) 9.3 k/uL (1.3-7.7); Neutrophils % (A) 75 %; Platelet Count 350 k/uL (150-450); RBC 5.69 m/uL (4.30-5.90); RDW 13.2 % (11.5-15.5); WBC 12.3 k/uL (3.8-10.6)
[2024-08-06 08:17] LABS: ALT 51 U/L (4-49); AST 32 U/L (17-59); African American GFR (CKD) >90 (>60 ml/min/1.73 sqM); Albumin 4.6 g/dL (3.5-5.0); Alkaline Phosphatase 76 U/L (38-126); Anion Gap 10 mmol/L; Bilirubin, Delta 0.2 mg/dL (0.0-0.2); Bilirubin,Unconjugated 2.8 mg/dL (0.0-1.1); Blood Urea Nitrogen 13 mg/dL (9-20); Calcium 9.7 mg/dL (8.4-10.2); Carbon Dioxide 29 mmol/L (22-30); Chloride 100 mmol/L (98-107); Glucose 113 mg/dL (74-99); Non-African American GFR(CKD) >90 (>60 ml/min/1.73 sqM); Potassium 4.3 mmol/L (3.5-5.1); Sodium 139 mmol/L (137-145); Total Protein 7.7 g/dL (6.3-8.2)
[2024-08-06 10:15] VITALS: BMI 33.3
--- NOTE | 2024-08-06 11:36 | P.HP ---
Psychiatric H&P - . H&P Date: 08/06/24 History & Physical: Allergies Allergy/AdvReac Type Severity Reaction Status Date / Time No Known Allergies Allergy Verified 08/05/24 14:10 Vital Signs Temp 97.8 F 08/06/24 08:07 Pulse 128 H 08/06/24 08:07 Resp 18 08/05/24 23:35 BP 117/82 08/06/24 08:07 Pulse Ox 95 08/06/24 08:07 FiO2 Intake & Output 08/05/24 08/06/24 08/06/24 18:59 06:59 18:59 Weight 102.512 kg 102.512 kg 102.512 kg Laboratory Last Values WBC 12.3 k/uL (3.8-10.6) H 08/06/24 07:27 RBC 5.69 m/uL (4.30-5.90) 08/06/24 07:27 Hgb 17.3 gm/dL (13.0-17.5) 08/06/24 07:27 Hct 49.7 % (39.0-53.0) 08/06/24 07:27 MCV 87.4 fL (80.0-100.0) 08/06/24 07:27 MCH 30.3 pg (25.0-35.0) 08/06/24 07:27 MCHC 34.7 g/dL (31.0-37.0) 08/06/24 07:27 RDW 13.2 % (11.5-15.5) 08/06/24 07:27 Plt Count 350 k/uL (150-450) 08/06/24 07:27 MPV 7.8 08/06/24 07:27 Neutrophils % 75 % 08/06/24 07:27 Lymphocytes % 16 % 08/06/24 07:27 Monocytes % 6 % 08/06/24 07:27 Eosinophils % 1 % 08/06/24 07:27 Basophils % 0 % 08/06/24 07:27 Neutrophils # 9.3 k/uL (1.3-7.7) H 08/06/24 07:27 Lymphocytes # 1.9 k/uL (1.0-4.8) 08/06/24 07:27 Monocytes # 0.8 k/uL (0-1.0) 08/06/24 07:27 Eosinophils # 0.1 k/uL (0-0.7) 08/06/24 07:27 Basophils # 0.0 k/uL (0-0.2) 08/06/24 07:27 Sodium 139 mmol/L (137-145) 08/06/24 07:27 Potassium 4.3 mmol/L (3.5-5.1) 08/06/24 07:27 Chloride 100 mmol/L (98-107) 08/06/24 07:27 Carbon Dioxide 29 mmol/L (22-30) 08/06/24 07:27 Anion Gap 10 mmol/L 08/06/24 07:27 BUN 13 mg/dL (9-20) 08/06/24 07:27 Creatinine 0.89 mg/dL (0.66-1.25) 08/06/24 07:27 Est GFR (CKD-EPI)AfAm >90 (>60 ml/min/1.73 sqM) 08/06/24 07:27 Est GFR (CKD-EPI)NonAf >90 (>60 ml/min/1.73 sqM) 08/06/24 07:27 Glucose 113 mg/dL (74-99) H 08/06/24 07:27 Calcium 9.7 mg/dL (8.4-10.2) 08/06/24 07:27 Total Bilirubin 3.0 mg/dL (0.2-1.3) H 08/06/24 07:27 Conjugated Bilirubin 0.0 mg/dL (0.0-0.3) 08/06/24 07:27 Unconjugated Bilirubin 2.8 mg/dL (0.0-1.1) H 08/06/24 07:27 Delta Bilirubin 0.2 mg/dL (0.0-0.2) 08/06/24 07:27 AST 32 U/L (17-59) 08/06/24 07:27 ALT 51 U/L (4-49) H 08/06/24 07:27 Alkaline Phosphatase 76 U/L (38-126) 08/06/24 07:27 Total Protein 7.7 g/dL (6.3-8.2) 08/06/24 07:27 Albumin 4.6 g/dL (3.5-5.0) 08/06/24 07:27 TSH 0.901 mIU/L (0.465-4.680) 08/06/24 07:27 Urine Opiates Screen Not Detected (NotDetected) 08/05/24 14:05 Ur Oxycodone Screen Not Detected (NotDetected) 08/05/24 14:05 Urine Methadone Screen Not Detected (NotDetected) 08/05/24 14:05 Ur Barbiturates Screen Not Detected (NotDetected) 08/05/24 14:05 U Tricyclic Antidepress Not Detected (NotDetected) 08/05/24 14:05 Ur Phencyclidine Scrn Not Detected (NotDetected) 08/05/24 14:05 Ur Amphetamines Screen Not Detected (NotDetected) 08/05/24 14:05 U Methamphetamines Scrn Not Detected (NotDetected) 08/05/24 14:05 U Benzodiazepines Scrn Not Detected (NotDetected) 08/05/24 14:05 Urine Cocaine Screen Not Detected (NotDetected) 08/05/24 14:05 U Marijuana (THC) Screen Not Detected (NotDetected) 08/05/24 14:05 SARS-CoV-2 (PCR) Not Detected (Not Detectd) 08/05/24 17:10 08/06/24 11:15 IDENTIFYING DATA: Patient is a 38-year-old male, he is single he has 1 kid, he lives with his father in a house, 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 Patient assessed in ER11 from [id number]. Patient had his daughters mother present but asked to step out per patient request. Patient states that he has been having a lot going on and lists stressors as increased debt, mold in his house with no money to fix the issue, medications not working, and stress at work. 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 Patient states that he has been able to go to work most days but has been struggling. Patient verbalizes that he feels paranoid, stressed, and overwhelmed. Patient describes having racing thoughts and "unable to shut off my mind". Patient verbalizes losing about 30lbs over the last month due to not being able to eat anything. Patient states that he is also unable to sleep. Patient describes that he works at night and has to be awake and take care of his 5yo daughter during the day. Patient states he has no motivation to care for his hygiene. Patient verbalizes feeling paranoid "all the time". Patient denies suicidal ideation when initially asked then shook his hand and said "so/so". Patient denies plan at this time to harm himself, but states he has had intentions on acting on a plan "a couple of times". Patient verbalizes having access to guns in the home. Patient appears down, depressed, flat affect, and no eye contact. Patient appears to be intermittently tearful throughout assessment. Unable to contract for safety or safety plan at this time. Patient verbalizes that Dr. Landry prescribed Buspar and Zoloft r/t anxiety and depression. Patient states he has taken his buspar sporatically and has not been taking the zoloft. Patient states the buspar makes him feel restless, dizzy, heart racing, and paranoid. Patient states he has a mental block and struggles swallowing the pills and feels paranoid that they will make him feel worse which is why he does not always take them as prescribed." Patient was seen wandering the hallways agreeable to speak to telegraphic typewriter repairer in the office. Patient was fairly concrete, evasive guarded. He was endorsing feeling overwhelmed, he claims that he is also feeling hopeless increase stress at work. Claims that his baby mother is also going to the court to request more parenting time. He states that there is also "mold in my house" which is causing more anxiety. He was minimizing his need for treatment, appeared to have some confusion at times, poor attention span during conversation. Endorsing hopelessness, depression anxiety. Claims that his sleep and appetite are poor. When asked about suicidal thoughts he did not give a straight answer and did allude to having wishes of not being alive. Patient denies any active suicidal or homicidal ideations intent or plan. At this time patient denies any auditory or visual hallucinations. Patient denies any flight of ideas racing thoughts and increased in goal directed behavior. Patient admits to using no recreational drugs or cigarette. He appears to have very poor insight poor judgment not believing that he needs treatment in the hospital at this time. PAST PSYCHIATRIC HISTORY: Patient has a history of depression, generalized anxiety disorder. Claims that he is currently on Zoloft and BuSpar however feels that they are not helping him. Patient denies any previous psychiatric hospitalizations. Patient denies any psychiatric outpatient follow-up. Patient denies any history of suicide attempts in the past. PMH: as per ER note ALLERGIES: as per EMR CHEMICAL DEPENDENCY HISTORY: as per HPI FAMILY PSYCHIATRIC/SUBSTANCE USE HISTORY: Claims that his mother had schizophrenia SOCIAL HISTORY: Patient was born and raised in [facility], claims that he completed high school, did a masters degree in criminal justice. 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 He lives in a house with his father. He is single he has 1 kid. He denies any legal history. MENTAL STATUS EXAM: General Appearance: Patient appears to be mildly overweight, shaved and bald, stated age is alert, poor attention span, poor eye contact, somewhat evasive and guarded. Patient appears to have poor hygiene and grooming. Behavior: Patient is seated without any agitated behavior. Evasive. Guarded Speech: Patient's speech is fluent and nonpressured. Mood/Affect: Patient reports their mood is depressed, affect is congruent and constricted. Suicidality/Homicidality: Patient denies having any homicidal ideation intent or plan. Denies any suicidal ideations intent or plan Perceptions: Patient denies any visual hallucinations and denies any auditory hallucinations Though content/process: Patient was fairly concrete, guarded, poverty of content Memory and concentration: AOX3, grossly intact for the purposes of this session. Can spell "WORLD" backwards Judgment and insight: Poor STRENGTHS/WEAKNESSES: strength is that patient is resilient. Weakness is that patient has poor judgment and has poor insight INTELLECT: Average IMPRESSIONS: Major depressive disorder, without psychotic features Generalized anxiety disorder PLAN: -Patient is admitted under involuntary status to MHU for stabilization of psychiatric symptoms and safety. Patient has not signed adult voluntary form and has signed medication consent and is placed in patient's chart. A second certification was completed and along with petition will be filed for court. -Medications : Cymbalta 30 mg daily for mood/anxiety, trazodone 50 mg nightly for insomnia/mood -Ativan and Haldol PRN for agitation/aggression -Patient was informed of the risks, benefits and side effects of the medications. Patient did not signed med consent form and was placed in chart. Patient was offered medication information and declined it -Internal Medicine consult to perform medical evaluation and physical. -NRT -not needed as patient does not smoke -SW on board for discharge planning. Encourage patient to participate in groups to work on coping skills. Will await deferral and court date. 08/06/24 11:31
[2024-08-06] MEDS: DULoxetine HCL 30 MG CAPSULE.DR PO SCH (11:42)
[2024-08-06 13:51] LABS: Chol/HDL Ratio 3.52 Ratio; LDL Cholesterol,Calculated 92.1 mg/dL (0.0-131.0); VLDL Calculation 18.18 mg/dL (5.00-40.00)
--- NOTE | 2024-08-06 13:53 | P.MDCNMH ---
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, has not been eating much because she does not have money to buy the food, he has been having a lot of deaths and he was not able to pay his dad at this point in time, beside the mother of his daughter is taking 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 to 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, patient was agitated earlier seen in my office at the beginning of the week and he was started on sertraline 25 mg at bedtime along with BuSpar 5 mg orally twice every day, and he was asked to come back and see me in the office in 2 to 3 days which he came yesterday he was quite depressed, his insight was poor, and the patient stated that the only way that he can get out of this if I can pay his student loan, and very shortly I have realized that the patient has some issues with delusion and hallucination, and he is getting more agitated in my office, and I have contacted the mother of his daughter Becky who came to my office and pick the patient to take him to the emergency room from the [place] appointment for evaluation by EPS, I spoke with Dr. Whitney the emergency room physician who has accepted the patient and they are waiting for him in the ER for evaluation and treatment patient has stated that he does not have any suicidal thoughts or ideation even though he does have a gun at home, but he stated that he is having some delusion and hallucination on and off, and he thinks those medications are making him more paranoid, he stated further that his mother had a history of schizophrenia and is afraid that he has some other issues besides his depression and anxiety disorder. Patient was seen in the ER by the EPS yesterday he was admitted to the mental health unit, I was asked to see the patient for medical management. REVIEW OF SYSTEMS: Constitutional: No documented fever, no chills, no night sweats. Positive for weight change. No weakness, fatigue or lethargy. No daytime sleepiness. EENT: No headache. No blurred vision or double vision, no loss of vision. No loss of Hearing, no ringing in the ears, no dizziness. No nasal drainage or congestion. No epistaxis. No sore throat. Lungs: No shortness of breath, no cough, no sputum production. No wheezing. Reports dyspnea with activity. Cardiovascular: No chest pain, no lower extremity edema. No palpitations. No paroxysmal nocturnal dyspnea. No orthopnea. No lightheadedness or dizziness. No syncopal episodes. Abdominal: Reports no abdominal pain. No nausea, vomiting. No diarrhea. No constipation. No bloody or tarry stools reports loss of appetite. Genitourinary: No dysuria, increased frequency, urgency. No urinary retention. Musculoskeletal: No myalgias. No muscle weakness, no gait dysfunction, no frequent falls. No back pain. No neck pain. Integumentary: No wounds, no lesions. No rash or pruritus. No unusual bruising. No change in hair or nails. Neurologic: No aphasia. No facial droop. No change in mentation. No head injury. No headache. No paralysis. No paresthesia. Psychiatric: Positive depression. Positive anxiety. Positive for mood swings. Endocrine: No abnormal blood sugars. Positive for weight change. PAST MEDICAL HISTORY: Anxiety Major depressive disorder. Overweight. 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 FAMILY HISTORY: Father 62-year-old with history of hypertension and hyperlipidemia, mother at the age of 35 from accidental drowning and she had a history of schizophrenia, patient has 2 sisters 1 with bipolar depression and the other 1 with borderline personality disorder, patient has 1 daughter alive and well. Patient has 2 paternal uncle with diabetes mellitus type 2. PHYSICAL EXAMINATION: General: 38-year-old male sitting up in chair appears to be depressed tearful at times. HEENT: Head is atraumatic, normocephalic, pupils were equal round reactive to light and recommendation, extraocular muscle movement were intact, sclera nonicteric, conjunctivae were pale, mucous membranes of the mouth are somewhat dry. Neck: Supple, no JVP, normal carotid upstroke bilaterally, no lymphadenopathy. Chest: Decreased breath sounds at the bases, few rhonchi, no expiratory wheezes, no chest wall tenderness, no intercostal retractions. Heart: First heart sound is normal, second heart sounds normal there is no gallop or murmur no rubs no heaves. Abdomen: Soft, nontender, nondistended, positive bowel sounds. Extremities: There is no edema no calf tenderness DP +2 bilaterally. Neurologic examination: Patient is awake alert and oriented x3, cranial nerves II-12 appear grossly intact, muscle power were 5 out of 5 in upper extremities and 5 out of 5 in bilateral lower extremities, deep tendon reflexes normal bilaterally. ASSESSMENT AND PLAN: 1. Major depressive disorder without psychotic feature. Patient was admitted to the mental health unit, he was started on duloxetine 30 mg once every day, continue with behavioral therapy, continue current treatment plan as with per mental health team. 2. Anxiety disorder. Continue patient on Cymbalta 30 mg orally once every day. Monitor the patient's symptoms very closely, 3. Insomnia. Continue patient on trazodone 50 mg orally at bedtime. 4. Overweight. Diet and exercise weight loss. 5. Thank you for the consult we will follow the patient with you. Past Medical History Past Medical History: Pneumonia Additional Past Medical History / Comment(s): kidney stones, cat scratch disease, transient proteinuria. History of Any Multi-Drug Resistant Organisms: None Reported Past Surgical History: Cholecystectomy Smoking Status: Never smoker - Past Family History Mother Family Medical History: No Reported History Additional Family Medical History / Comment(s): schizophrenia Father Family Medical History: No Reported History Sister(s) Family Medical History: No Reported History Medications and Allergies Home Medications Medication Instructions Recorded Confirmed Type hydrOXYzine HCL [Atarax] 50 mg PO TID PRN #10 tablet 07/28/24 08/05/24 Rx Cyclobenzaprine [Flexeril] 5 mg PO HS PRN 08/05/24 08/05/24 History Sertraline [Zoloft] 50 mg PO DAILY 08/05/24 08/05/24 History busPIRone HCl [Buspar] 5 mg PO BID 08/05/24 08/05/24 History Allergies Allergy/AdvReac Type Severity Reaction Status Date / Time No Known Allergies Allergy Verified 08/05/24 14:10 Physical Exam Vitals: Vital Signs Temp Pulse Pulse Resp BP BP Pulse Ox 08/05/24 23:35 97 F L 113 H 18 138/82 96 04/04/25 20:23 98.1 F 115 H 20 133/90 97 08/05/24 19:43 98.1 F 08/05/24 18:51 97 20 135/83 97 08/05/24 13:10 98.6 F 87 18 120/74 98 Intake and Output 08/05/24 08/06/24 08/06/24 22:59 06:59 14:59 Other: Weight 102.512 kg Cranial Nerve Examination - Cranial Nerves Cranial Nerve I- Olfactory: Intact Cranial Nerve II- Optic: Intact Cranial Nerve III- Oculomotor: Intact Cranial Nerve IV- Trochlear: Intact Cranial Nerve V- Trigeminal: Intact Cranial Nerve - Abducens: Intact Cranial Nerve VII- Facial: Intact Cranial Nerve VIII- Auditory: Intact Cranial Nerve IX- Glossopharyngeal: Intact Cranial Nerve X- Vagus: Intact Cranial Nerve XI- Accessory: Intact Cranial Nerve XII- Hypoglossal: Intact Results CBC & Chem 7: 08/06/24 07:27 08/06/24 07:27
[2024-08-06] MEDS: IBUPROFEN 600 MG TAB PO PRN (20:16)
[2024-08-06] MEDS: traZODone HCL 50 MG TAB PO SCH (20:16)
--- NOTE | 2024-08-07 11:30 | P.PN ---
Progress Note - Text Progress Note Date: 08/07/24 Interval History: Patient was seen today laying in his bed today. Patient claims that he is not feeling well today, claims that he feels a bit confused. He states that he is also feeling like his stomach is upset and claims that he does not tolerate "serotonin" very well. He claims that he knew he should have taken the medication yesterday. He states that throughout the day he was not feeling well and then trazodone he only slept for a little bit and then woke up. He was a bit upset at law writer about the involvement of the courts. Business Solution Analyst explained why he completed a second certificate. Patient appears to have poor understanding of his condition poor understanding of need for treatment. He did not appear to be consenting to further medications despite being offered several alternatives including Remeron and Wellbutrin. Business Solution Analyst explained that Wellbutrin will be prescribed at nighttime at a very low dose to see if that is helping as well. He did not offer any other ways to help him at this time, he was upset at law writer, claims that he is feeling a bit anxious today. Denies any suicidal homicidal ideations intent or plan denies any auditory or visual hallucinations. MENTAL STATUS EXAM: General Appearance: Patient appears to be mildly overweight, shaved and bald, stated age is alert, poor attention span, poor eye contact, somewhat evasive and guarded and confused. Patient appears to have improving hygiene and grooming. Behavior: Patient is seated without any agitated behavior. Evasive. Guarded Speech: Patient's speech is fluent and nonpressured. Mood/Affect: Patient reports their mood is depressed and anxious, affect is congruent and constricted. Suicidality/Homicidality: Patient denies having any homicidal ideation intent or plan. Denies any suicidal ideations intent or plan Perceptions: Patient denies any visual hallucinations and denies any auditory whit[place] llucinations Though content/process: Patient was fairly concrete, guarded, poverty of content, somatically preoccpuied. Memory and concentration: AOX3, grossly intact for the purposes of this session. Judgment and insight: Poor IMPRESSIONS: Major depressive disorder, without psychotic features Generalized anxiety disorder PLAN: -Patient is admitted under involuntary status to MHU for stabilization of psychiatric symptoms and safety. Patient has not signed adult voluntary form and has signed medication consent and is placed in patient's chart. -Medications : d/c Cymbalta and trazodone due to patients request. added remeron 7.5 mg qhs for insomnia/mood. offered wellbutrin aswell however patient declined at this time. -Ativan and Haldol PRN for agitation/aggression -NRT -not needed as patient does not smoke -SW on board for discharge planning. Encourage patient to participate in groups to work on coping skills. Will await deferral and court date.
[2024-08-07] MEDS: HALOPERIDOL LACTATE 5 MG/ML 1 ML VIAL IM PRN (14:34)
[2024-08-07] MEDS: LORazepam 2 MG/ML INJ IM PRN (14:34)
[2024-08-07] MEDS: MIRTAZAPINE 15 MG TAB PO SCH (20:21)
--- NOTE | 2024-08-08 11:56 | P.PN ---
Progress Note - Text Progress Note Date: 08/08/24 Interval History: Patient was seen today taking part in group doing activities. According to drea espinoing notes patient was upset yesterday verbally agitated and anxious and required Haldol and Ativan PRNs in the afternoon. Patient appears to be fairly frustrated, believes that he is "trapped here" and states that he only wants to do well "for my daughter". He states that he is still feeling "off" however is unable to describe more of how he is feeling. He is not reporting any changes in his energy level, has been trying to go to groups. Remains fairly vague in his descriptions of his somatic symptoms. He continues to endorse some anxiety racing thoughts. We spoke about different alternatives medications, he was agreeable to try Abilify today. Claims that he did sleep well last night has been eating. Denies any suicidal homicidal ideations intent or plan denies any auditory or visual hallucinations. MENTAL STATUS EXAM: General Appearance: Patient appears to be mildly overweight, shaved and bald, stated age is alert, mildly improving attention span, poor eye contact, somewhat evasive and guarded. Patient appears to have improving hygiene and grooming. Behavior: Patient is seated without any agitated behavior. Evasive. Guarded, improving mildly. Appears to be somewhat frustrated Speech: Patient's speech is fluent and nonpressured. Mood/Affect: Patient reports their mood is depressed and anxious, affect is congruent and constricted. Suicidality/Homicidality: Patient denies having any homicidal ideation intent or plan. Denies any suicidal ideations intent or plan Perceptions: Patient denies any visual hallucinations and denies any auditory hallucinations Though content/process: Patient was fairly concrete, guarded, poverty of content, somatically preoccpuied. Memory and concentration: AOX3, grossly intact for the purposes of this session. Judgment and insight: Poor IMPRESSIONS: Major depressive disorder, without psychotic features Generalized anxiety disorder PLAN: -Patient is admitted under involuntary status to MHU for stabilization of psychiatric symptoms and safety. Patient has not signed adult voluntary form and has signed medication consent and is placed in patient's chart. -Medications : remeron 7.5 mg qhs for insomnia/mood. abilify po 2.5 mg daily for mood stabilization/adjunct -Ativan and Haldol PRN for agitation/aggression -NRT -not needed as patient does not smoke -SW on board for discharge planning. Encourage patient to participate in groups to work on coping skills. Will await deferral and court date.
[2024-08-08] MEDS: ARIPiprazole 5 MG TAB PO SCH (12:36)
[2024-08-08] MEDS: LORazepam 1 MG TAB PO PRN (18:44)
[2024-08-08] MEDS: haloperidoL 5 MG TAB PO PRN (18:44)
[2024-08-08] MEDS: MIRTAZAPINE 15 MG TAB PO SCH (20:53)
[2024-08-08] MEDS ORDERED: MIRTAZAPINE 15 MG TAB PO SCH (21:00)
[2024-08-09] MEDS ORDERED: PROPRANOLOL 20 MG TAB PO PRN (11:47)
--- NOTE | 2024-08-09 11:50 | P.PN ---
Progress Note - Text Progress Note Date: 08/09/24 Interval History: Patient was seen today taking part in group doing activities. he was agreeable to speak to marketing underwriter in the office. he appears to be more direcatble and improved affect however states that he is feeling tired today and does not know why. he claims that he did sleep fairly last night. he is less hesitant about the medications today. is not clear on the relationship of the medications and how he is feeling. claims that he was feeling resltess last evening and required mediations. Claims that he did sleep well last night has been eating. Denies any suicidal homicidal ideations intent or plan denies any auditory or visual hallucinations. MENTAL STATUS EXAM: General Appearance: Patient appears to be mildly overweight, shaved and bald, stated age is alert, mildly improving attention span, improving eye contact, somewhat evasive and guarded. Patient appears to have improving hygiene and grooming. Behavior: Patient is seated without any agitated behavior. Guarded, improving mildly. Appears to be more directable today Speech: Patient's speech is fluent and nonpressured. hesitant. Mood/Affect: Patient reports their mood is improivng mildly, affect is congruent and constricted. Suicidality/Homicidality: Patient denies having any homicidal ideation intent or plan. Denies any suicidal ideations intent or plan Perceptions: Patient denies any visual hallucinations and denies any auditory hallucinations Though content/process: Patient was fairly concrete, poverty of content, somatically preoccpuied. improving mildly Memory and concentration: AOX3, grossly intact for the purposes of this session. Judgment and insight: Poor, improving mildly IMPRESSIONS: Major depressive disorder, without psychotic features Generalized anxiety disorder PLAN: -Patient is admitted under involuntary status to [facility] for stabilization of psychiatric symptoms and safety. Patient has not signed adult voluntary form and has signed medication consent and is placed in patient's chart. -Medications : remeron 7.5 mg qhs for insomnia/mood. change abilify po 2.5 mg qhs for mood stabilization/adjunct. added inderall 20 mg bid prn for restlessness -Ativan and Haldol PRN for agitation/aggression -NRT -not needed as patient does not smoke -SW on board for discharge planning. Encourage patient to participate in groups to work on coping skills. Will await deferral and court date. likely discharge in 2-3 days if patient is improving.
[2024-08-09] MEDS: ARIPiprazole 5 MG TAB PO SCH (20:24)
[2024-08-10 11:07] VITALS: RESP 18
[2024-08-10] MEDS ORDERED: LORazepam 0.5 MG TAB PO PRN (14:22)
--- NOTE | 2024-08-10 14:30 | P.PN ---
Progress Note - Text Progress Note Date: 08/10/24 Interval History: Patient was seen today taking part in group doing activities. Patient was seen by specifications writer in the office. Patient appears to be less confused today, more cooperative with interview. Claims that he is doing okay, was asking about potential discharge. He states that he is tolerating the medications fairly well however keep claims that he is still struggling with being a bit tired and having difficulty sleeping at night. 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 He was agreeable to try melatonin tonight and a higher dose of Remeron. States that his mood and anxiety have been improving mildly. Claims that he is eating fairly. Denies any suicidal homicidal ideations intent or plan denies any auditory or visual hallucinations. MENTAL STATUS EXAM: General Appearance: Patient appears to be mildly overweight, shaved and bald, stated age is alert, mildly improving attention span, improving eye contact, somewhat evasive and guarded. Patient appears to have improving hygiene and groo moi. Behavior: Patient is seated without any agitated behavior. improving mildly. Appears to be more directable today Speech: Patient's speech is fluent and nonpressured. hesitant. Improving mildly Mood/Affect: Patient reports their mood is improivng mildly, affect is congruent and constricted. Improving mildly Suicidality/Homicidality: Patient denies having any homicidal ideation intent or plan. Denies any suicidal ideations intent or plan Perceptions: Patient denies any visual hallucinations and denies any auditory hallucinations Though content/process: Patient was fairly concrete, more goal oriented improving mildly Memory and concentration: AOX3, grossly intact for the purposes of this session. Judgment and insight: improving mildly IMPRESSIONS: Major depressive disorder, without psychotic features Generalized anxiety disorder PLAN: -Patient is admitted under involuntary status to [facility] for stabilization of psychiatric symptoms and safety. Patient has not signed adult voluntary form and has signed medication consent and is placed in patient's chart. -Medications : Increase remeron 15 mg qhs for insomnia/mood. abilify po 2.5 mg qhs for mood stabilization/adjunct. inderall 20 mg bid prn for restlessness. melatonin 6 mg qhs for insomnia/mood. -Ativan and Haldol PRN for agitation/aggression -NRT -not needed as patient does not smoke -SW on board for discharge planning. Encourage patient to participate in groups to work on coping skills. patient signed deferral. likely discharge tomorrow if patient is improving.
[2024-08-10] MEDS: MELATONIN 3 MG TABLET PO SCH (20:43)
[2024-08-10] MEDS: MIRTAZAPINE 15 MG TAB PO SCH (20:43)
[2024-08-11] MEDS: ACETAMINOPHEN TAB 325 MG TAB PO PRN (02:41)
[2024-08-11 07:53] VITALS: BP 110/79; PULSE 118; TEMP 97.8
--- NOTE | 2024-08-11 10:31 | P.DS ---
Providers Date of admission: 08/05/24 18:23 Expected date of discharge: 08/11/24 Attending physician: Destin Espinoza MD Consults: 08/05/24 19:26 Consult Physician Routine Consulting Provider: Guerline Landry Consult Reason/Comments: History and Physical, New Admission Do you want consulting provider notified?: Yes Primary care physician: Guerline Landry - Discharge Diagnosis(es) (1) Major depressive disorder Current Visit: Yes Status: Acute Priority: High (2) Generalized anxiety disorder Current Visit: Yes Status: Acute Priority: High Hospital Course: Admission HPI: Admission note was completed by group underwriter "patient is a 38-year-old male, he is single he has 1 kid, he lives with his father in a house, 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 Patient presented to the hospital yesterday and was evauated by irma veronica and as per note "Patient presented to ER on own with friend at bedside for anxiety. Patient assessed in ER11 from [id number]. Patient had his daughters mother present but asked to step out per patient request. Patient states that he has been having a lot going on and lists stressors as increased debt, mold in his house with no money to fix the issue, medications not working, and stress at work. 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 Patient states that he has been able to go to work most days but has been struggling. Patient verbalizes that he feels paranoid, stressed, and overwhelmed. Patient describes having racing thoughts and "unable to shut off my mind". Patient verbalizes losing about 30lbs over the last month due to not being able to eat anything. Patient states that he is also unable to sleep. Patient describes that he works at night and has to be awake and take care of his 5yo daughter during the day. Patient states he has no motivation to care for his hygiene. Patient verbalizes feeling paranoid "all the time". Patient denies suicidal ideation when initially asked then shook his hand and said "so/so". Patient denies plan at this time to harm himself, but states he has had intentions on acting on a plan "a couple of times". Patient verbalizes having access to guns in the home. Patient appears down, depressed, flat affect, and no eye contact. Patient appears to be intermittently tearful throughout assessment. Unable to contract for safety or safety plan at this time. Patient verbalizes that Dr. Landry prescribed Buspar and Zoloft r/t anxiety and depression. Patient states he has taken his buspar sporatically and has not been taking the zoloft. Patient states the buspar makes him feel restless, dizzy, heart racing, and paranoid. Patient states he has a mental block and struggles swallowing the pills and feels paranoid that they will make him feel worse which is why he does not always take them as prescribed." Patient was seen wandering the hallways agreeable to speak to group underwriter in the office. Patient was fairly concrete, evasive guarded. He was endorsing feeling overwhelmed, he claims that he is also feeling hopeless increase stress at work. Claims that his baby mother is also going to the court to request more parenting time. He states that there is also "mold in my house" which is causing more anxiety. He was minimizing his need for treatment, appeared to have some confusion at times, poor attention span during conversation. Endorsing hopelessness, depression anxiety. Claims that his sleep and appetite are poor. When asked about suicidal thoughts he did not give a straight answer and did allude to having wishes of not being alive. Patient denies any active suicidal or homicidal ideations intent or plan. At this time patient denies any auditory or visual hallucinations. Patient denies any flight of ideas racing thoughts and increased in goal directed behavior. Patient admits to using no recreational drugs or cigarette. He appears to have very poor insight poor judgment not believing that he needs treatment in the hospital at this time." Hospital course: Upon admission to the unit patient was admitted involuntarily on a petition and certificate and a second certificate was completed and faxed to the courts. Patient ended up signing a deferral with the design drafter and agreeing to treatment. Patient was initially depressed, isolative, anxious however with time and treatment patient got along well with other patients on the unit and followed unit protocol. Patient was compliant with the medications and denied any side effects throughout hospital course. Patient was started on Abilify p.o. 2 mg nightly for mood stabilization/adjunct, melatonin nightly for insomnia/mood, Remeron increased to 15 mg nightly for insomnia/mood. Patient spoke of his stressors and engaged in therapy both group/activity therapy. Patient was also seen by medical team for history and physical exam. Throughout the course of the hospitalization patient gradually improved with regards to mood, anxiety, sleep and returned back to their baseline level of functioning. On the day of discharge patient denied any suicidal or homicidal ideations intent or plan denied any auditory or visual hallucinations. Patient endorsed wanting to live for their health and family and kids. The patient denied any access to guns or weapons. Patient denied any paranoia and did not endorse any delusions. Patient does not have a significant history of substance abuse and was counseled on abstaining from all substances including alcohol and marijuana. . Patient was also counseled on the medications and need for regular compliance and was encouraged to follow-up with their outpatient appointment for mental health and also for primary care. Prior to discharge a family meeting will be arranged by social services technician to answer any questions and ensure safety upon discharge incuding making sure that guns/weapons are either removed from the home or locked away. Patient states that his home environment is safe and his brother came to his home and removed all guns weapons. Mental status exam: General Appearance: Patient appears to be mildly overweight, bald, stated age is alert, pleasant, and cooperative. Patient is in no acute distress and has improved hygiene and grooming Behavior: Patient is calmly seated without any agitated behavior. Speech: Patient's speech is fluent and nonpressured. Mood/Affect: Patient reports their mood is "better", affect is congruent Suicidality/Homicidality: Patient denies having any suicidal or homicidal ideation intent or plan. Perceptions: Patient denies any auditory or visual hallucinations. Though content/process: There is no evidence of any delusional thought content and thought process is linear and goal-directed. More future oriented Memory and concentration: AOX3, grossly intact for the purposes of this session. Can spell "WORLD" backwards correctly. Judgment and insight: improved with guarded prognosis Impression: Major depressive disorder Generalized anxiety disorder Plan: -Continue with discharge today as patient has improved and stabilized psychiatrically and is not currently an imminent threat to themself and/or others. Patient will remain at chronically elevated risk for harm to self and/or others due to their impulsivity. -Continue medications: Remeron 15 mg nightly for insomnia/mood, Abilify p.o. 2 mg nightly for mood stabilization/adjunct, melatonin 10 mg nightly as needed for insomnia. Atarax daily as needed for anxiety -Patient was counseled on the need for medication compliance and appropriate follow-up at mental health and also primary care for medical issues. Patient verbalized understanding and agreed. -Social work to arrange for and conduct family meeting to ensure safety upon discharge and answer any questions/concerns. also to ensure safe home environment that guns/weapons are either removed from the home or locked away. Social work also to arrange for patients follow up appointments with [facility] for psychiatric care along with follow up with primary care provider. -Patient counseled on abstaining from recreational drugs and marijuana and alcohol. Was informed/educated on the adverse effects on their physical and mental health. Patient verbally agreed and understood. -Patient was instructed to return to the hospital or seek immediate medical care if their psychiatric or medical symptoms do worsen or reoccur. Allergies Allergy/AdvReac Type Severity Reaction Status Date / Time No Known Allergies Allergy Verified 08/05/24 14:10 Laboratory Results WBC 12.3 k/uL (3.8-10.6) H 08/06/24 07: RBC 5.69 m/uL (4.30-5.90) 08/06/24 07:27 Hgb 17.3 gm/dL (13.0-17.5) 08/06/24 07:27 Hct 49.7 % (39.0-53.0) 08/06/24 07:27 MCV 87.4 fL (80.0-100.0) 08/06/24 07:27 MCH 30.3 pg (25.0-35.0) 08/06/24 07:27 MCHC 34.7 g/dL (31.0-37.0) 08/06/24 07:27 RDW 13.2 % (11.5-15.5) 08/06/24 07:27 Plt Count 350 k/uL (150-450) 08/06/24 07:27 MPV 7.8 08/06/24 07:27 Neutrophils % 75 % 08/06/24 07:27 Lymphocytes % 16 % 08/06/24 07:27 Monocytes % 6 % 08/06/24 07:27 Eosinophils % 1 % 08/06/24 07:27 Basophils % 0 % 08/06/24 07:27 Neutrophils # 9.3 k/uL (1.3-7.7) H 08/06/24 07:27 Lymphocytes # 1.9 k/uL (1.0-4.8) 08/06/24 07:27 Monocytes # 0.8 k/uL (0-1.0) 08/06/24 07: Eosinophils # 0.1 k/uL (0-0.7) 08/06/24 07:27 Basophils # 0.0 k/uL (0-0.2) 08/06/24 07:27 Sodium 139 mmol/L (137-145) 08/06/24 07:27 Potassium 4.3 mmol/L (3.5-5.1) 08/06/24 07: Chloride 100 mmol/L (98-107) 08/06/24 07: Carbon Dioxide 29 mmol/L (22-30) 08/06/24 07: Anion Gap 10 mmol/L 08/06/24 07:27 BUN 13 mg/dL (9-20) 08/06/24 07:27 Creatinine 0.89 mg/dL (0.66-1.25) 08/06/24 07:27 Est GFR (CKD-EPI)AfAm >90 (>60 ml/min/1.73 sqM) 08/06/24 07:27 Est GFR (CKD-EPI)NonAf >90 (>60 ml/min/1.73 sqM) 08/06/24 07:27 Glucose 113 mg/dL (74-99) H 08/06/24 07:[address] Glu mg/dL 100 mg/dL 08/06/24 07:27 Hemoglobin A1c 5.1 % (<=6.0) 08/06/24 07: Calcium 9.7 mg/dL (8.4-10.2) 08/06/24 07:27 Total Bilirubin 3.0 mg/dL (0.2-1.3) H 08/06/24 07:27 Conjugated Bilirubin 0.0 mg/dL (0.0-0.3) 08/06/24 07: Unconjugated Bilirubin 2.8 mg/dL (0.0-1.1) H 08/06/24 07:27 Delta Bilirubin 0.2 mg/dL (0.0-0.2) 08/06/24 07:27 AST 32 U/L (17-59) 08/06/24 07:27 ALT 51 U/L (4-49) H 08/06/24 07:27 Alkaline Phosphatase 76 U/L (38-126) 08/06/24 07:27 Total Protein 7.7 g/dL (6.3-8.2) 08/06/24 07:27 Albumin 4.6 g/dL (3.5-5.0) 08/06/24 07:27 Triglycerides 90.90 mg/dL (0.00-149.00) 08/06/24 07:27 Cholesterol 154.00 mg/dL (0.00-200.00) 08/06/24 07:27 LDL Cholesterol, Calc 92.1 mg/dL (0.0-131.0) 08/06/24 07:27 VLDL Cholesterol, Calc 18.18 mg/dL (5.00-40.00) 08/06/24 07:27 HDL Cholesterol 43.70 mg/dL (40.00-60.00) 08/06/24 07:27 Cholesterol/HDL Ratio 3.52 Ratio 08/06/24 07: TSH 0.901 mIU/L (0.465-4.680) 08/06/24 07:27 Urine Opiates Screen Not Detected (NotDetected) 08/05/24 14:05 Ur Oxycodone Screen Not Detected (NotDetected) 08/05/24 14:05 Urine Methadone Screen Not Detected (NotDetected) 08/05/24 14:05 Ur Barbiturates Screen Not Detected (NotDetected) 08/05/24 14:05 U Tricyclic Antidepress Not Detected (NotDetected) 08/05/24 14:05 Ur Phencyclidine Scrn Not Detected (NotDetected) 08/05/24 14:05 Ur Amphetamines Screen Not Detected (NotDetected) 08/05/24 14:05 U Methamphetamines Scrn Not Detected (NotDetected) 08/05/24 14:05 U Benzodiazepines Scrn Not Detected (NotDetected) 08/05/24 14:05 Urine Cocaine Screen Not Detected (NotDetected) 08/05/24 14:05 U Marijuana (THC) Screen Not Detected (NotDetected) 08/05/24 14:05 SARS-CoV-2 (PCR) Not Detected (Not Detectd) 08/05/24 17:10 Vital Signs Temp 97.8 F 08/11/24 07:53 Pulse 118 H 08/11/24 07:53 Resp 18 08/11/24 07:53 BP 110/79 08/11/24 07:53 Pulse Ox 97 08/11/24 07:53 FiO2 Patient Condition at Discharge: Stable Plan - Discharge Summary Discharge Rx Participant: Yes New Discharge Prescriptions: New ARIPiprazole [Abilify] 2 mg PO HS 30 Days #30 tab Melatonin 10 mg PO HS PRN 30 Days #30 tab PRN Reason: Insomnia Pantoprazole [Protonix] 40 mg PO AC-BRKFST 30 Days #30 tab Mirtazapine [Remeron] 15 mg PO HS 30 Days #30 tab Continue Cyclobenzaprine [Flexeril] 5 mg PO HS PRN PRN Reason: Muscle Spasm Changed hydrOXYzine HCL [Atarax] 50 mg PO DAILY PRN 14 Days #14 tablet PRN Reason: Anxiety Discontinued Sertraline [Zoloft] 50 mg PO DAILY busPIRone HCl [Buspar] 5 mg PO BID Discharge Medication List Cyclobenzaprine [Flexeril] 5 mg PO HS PRN 08/05/24 [History] ARIPiprazole [Abilify] 2 mg PO HS 30 Days #30 tab 08/11/24 [Rx] Melatonin 10 mg PO HS PRN 30 Days #30 tab 08/11/24 [Rx] Mirtazapine [Remeron] 15 mg PO HS 30 Days #30 tab 08/11/24 [Rx] Pantoprazole [Protonix] 40 mg PO AC-BRKFST 30 Days #30 tab 08/11/24 [Rx] hydrOXYzine HCL [Atarax] 50 mg PO DAILY PRN 14 Days #14 tablet 08/11/24 [Rx] Follow up Appointment(s)/Referral(s): [facility] - 08/16/24 3:00 pm ([place] ) [facility] [Outside] - 10/14/24 8:00 am (10/14 @ [address] Fernández) Guerline Landry MD [Primary Care Provider] - 1-2 days Patient Instructions/Handouts: Generalized Anxiety Disorder (ED) Activity/Diet/Wound Care/Special Instructions: [facility] Discharge Info Avoid the use of street drugs and alcohol. Take all medications as prescribed. When you are in need of refills on your medications, please contact your outpatient medical provider and/or outpatient psychiatrist. Please go to your scheduled outpatient appointments for aftercare treatment. If symptoms return or become worse, call the crisis line at or and/or visit the nearest emergency room for assistance. National Suicide and Crisis Lifeline - call or text 363 Discharge Disposition: HOME SELF-CARE
[2024-08-11] MEDS ORDERED: MELATONIN 5 MG TABLET PO SCH (21:00)
== END 2024-08-11 12:45 | disposition home or self-care (01) | DRG 881 ==
LOC: EC 12:55 → 3MHU 18:23
PROVIDERS: ADMIT Psychiatry & Neurology Psychiatry; ATTEND Psychiatry & Neurology Psychiatry
DX: F32.9 Major depressive disorder, single episode, unspecified (principal); F22 Delusional disorders; Z68.33 Body mass index [BMI] 33.0-33.9, adult; E66.3 Overweight; F41.1 Generalized anxiety disorder; R45.1 Restlessness and agitation; F79 Unspecified intellectual disabilities; G47.00 Insomnia, unspecified; Z79.899 Other long term (current) drug therapy; Z87.442 Personal history of urinary calculi; Z87.01 Personal history of pneumonia (recurrent); Z71.89 Other specified counseling; Z88.1 Allergy status to other antibiotic agents; Z88.8 Allergy status to other drugs, medicaments and biological substances
CPT/HCPCS: 80053; 80061; 80306; 82075; 82248; 83036; 84443; 85025; 87635; 99285